=== PATIENT | male | born 1930 | race Caucasian/White ===

== ENCOUNTER → 2016-11-02 | Outpatient (REF) | payer MEDICARE ==
[~2016-11-02] MED LIST: ACET-654 PO; ALLO100T PO; AMLO5TAB2 PO; ASPI325T PO; ATEN25TA PO; ATEN50TA2 PO; B-12100010 PO; CALC1CAP31 PO; CEFD1CAP8 PO; DOXY-278 PO; FERR325T PO; FLEEENE4 PR; FURO20TA2 PO; FURO40TA2 PO; LISI-538 PO; LISI25TA PO; MILKSUS PO; MIRA33504 PO; MUCI600T34 PO; NIFEPOW PO; PERCOCET PO; PROT1TAB2 PO; SENO8.6T10 PO; SIMV20TA2 PO; SPIR25TA2 PO; TYLE325T5 PO; ZOLO50TA PO
[2016-11-02 16:30] LABS: ALBUMIN 2.8 GM/DL (3.2-5.2); ALBUMIN/GLOBULIN RATIO 0.85 (1.00-1.93); BILIRUBIN,TOTAL 0.4 MG/DL (0.2-1.0); CALCIUM LEVEL 8.1 MG/DL (8.8-10.2); CREATININE FOR GFR 2.2 MG/DL (0.70-1.30); GLOMERULAR FILTRATION RATE 30.2 (>35); PERCENT SATURATION 8.6 % (19.7-37.4); POTASSIUM SERUM 3.5 MEQ/L (3.5-5.1); TOTAL PROTEIN 6.1 GM/DL (6.4-8.2)
[2016-11-02 16:40] LABS: BASO % 0.4 % (0.0-1.0); EOS # 0.1 K/mm3 (0.0-0.50); EOS % 1.3 % (0.0-3.0); LARGE UNSTAINED CELL # 0.2 K/mm3 (0.0-0.4); LARGE UNSTAINED CELL % 2.8 % (0.0-4.0); LYMPH # 0.9 K/mm3 (1.5-4.5); MEAN CORPUSCULAR HEMOGLOBIN 29.6 pg (27.0-33.0); MEAN CORPUSCULAR HGB CONC 31.2 g/dl (32.0-36.5); MEAN CORPUSCULAR VOLUME 94.9 fl (80.0-96.0); MONO # 0.7 K/mm3 (0.0-0.8); MONO % 8.1 % (0.0-5.0); NEUTROPHILS # 6.1 K/mm3 (1.8-7.7); NEUTROPHILS % 76.5 % (36.0-66.0); PLATELET COUNT, AUTOMATED 256 k/mm3 (150-450); RED CELL DISTRIBUTION WIDTH 14.4 % (11.5-14.5)
[2016-11-04 10:57] LABS: PRETREATED FOLATE FOR RBCFOL > 24.0 NG/ML
== END ==
LOC: M SFHCPLAZ 12:25
PROVIDERS: ATTEND Family Medicine
DX: N18.3 Chronic kidney disease, stage 3 (moderate) (principal); E53.8 Deficiency of other specified B group vitamins; I12.9 Hypertensive chronic kidney disease with stage 1 through stage 4 chronic kidney disease, or unspecified chronic kidney disease; E78.5 Hyperlipidemia, unspecified; D50.9 Iron deficiency anemia, unspecified; I50.30 Unspecified diastolic (congestive) heart failure; M10.9 Gout, unspecified; E55.9 Vitamin D deficiency, unspecified; I25.10 Atherosclerotic heart disease of native coronary artery without angina pectoris; M16.9 Osteoarthritis of hip, unspecified; Z79.82 Long term (current) use of aspirin; Z79.1 Long term (current) use of non-steroidal anti-inflammatories (NSAID)

== ENCOUNTER → 2016-11-11 | Outpatient (CLI) | payer MEDICARE ==
--- NOTE | 2016-11-11 16:50 | REP ---
CT chest without contrast 11/11/2016: Indication: Pleural effusion. Comparison: CT chest without contrast 10/14/2016 CT chest 04/10/2009. Technique: 3 mm spiral axial sections performed through chest without contrast. Findings: The thoracic aorta is ectatic in its ascending portion, measuring 3.9 cm AP x 3.8 cm transverse dimension. Extensive coronary artery calcification is noted. There has been prior median sternotomy. Calcification is noted in the region of the aortic valve. There are multiple small nonspecific mediastinal nodes, none of which are pathologically enlarged, and not significantly changed. Previous moderate right pleural effusion is improved and now small to moderate in size. There is some compressive atelectasis within the right lower lobe. Long stable area of dense consolidation within the left lower lobe is chronic and not significantly changed from 2008 study. This most compatible with a sequela of old empyema or hemothorax, and not significantly changed. There is compressive atelectasis of the left lower lobe. Visualized portions of the liver, spleen, pancreas, gallbladder normal. There is thickening in the right adrenal with low density consistent with adenoma. The left adrenal is also thickened and with density greater than adenoma, therefore indeterminate. Impression:1. Prior median sternotomy with extensive coronary artery calcification. 2. Scattered sub cm mediastinal nodes, nonspecific and not significantly changed. 3. Stable pleural based mass within the posterior aspect left lower lobe most compatible with sequela of hemothorax. Findings are not significantly changed since prior study 04/10/2009. 4. Small to moderate right posterior layering pleural effusion, decreased from prior study. There is right basilar compression atelectasis. Signed by Beba Kennedy MD 11/11/2016 08:33 P
== END | disposition home or self-care (01) ==
LOC: M RAD 15:25
PROVIDERS: ATTEND Physician Assistant Medical
DX: J90 Pleural effusion, not elsewhere classified (principal); J98.11 Atelectasis

== ENCOUNTER 2017-01-03 18:30 | Inpatient (IN) | payer MEDICARE ==
[~2017-01-03] VITALS: Ht 172.7 cm; Wt 65.4 kg
[~2017-01-03 18:30] MED LIST changes: -IRON65TA PO; -ROCA0.5C PO; -TORS20TA2 PO; -TRAM50TA2 PO; -TUMS500C PO; -VITA100072 PO; -WARF05TA PO; -WARF4TAB51 PO; -calcitrol
[2017-01-03] MEDS ORDERED: TRAM50TA2 PO (19:07)
[2017-01-03] MEDS ORDERED: calcitrol (19:07)
[2017-01-03] MEDS ORDERED: WARF05TA PO (19:07)
[2017-01-03] MEDS ORDERED: IRON65TA PO (19:07)
[2017-01-03] MEDS ORDERED: ATEN25TA PO (19:07)
[2017-01-03] MEDS ORDERED: TORS20TA2 PO (19:07)
[2017-01-03] MEDS ORDERED: VITA100072 PO (19:07)
[2017-01-03] MEDS ORDERED: TUMS500C PO (19:07)
[2017-01-03 21:19] LABS: BASO % 0.1 % (0.0-1.0); EOS # 0.1 K/mm3 (0.0-0.50); EOS % 0.6 % (0.0-3.0); LARGE UNSTAINED CELL # 0.2 K/mm3 (0.0-0.4); LARGE UNSTAINED CELL % 1.4 % (0.0-4.0); LYMPH # 1.2 K/mm3 (1.5-4.5); LYMPH % 7.1 % (24.0-44.0); MEAN CORPUSCULAR HEMOGLOBIN 27.2 pg (27.0-33.0); MEAN CORPUSCULAR HGB CONC 30.8 g/dl (32.0-36.5); MEAN CORPUSCULAR VOLUME 88.4 fl (80.0-96.0); MONO % 7.1 % (0.0-5.0); NEUTROPHILS # 11.8 K/mm3 (1.8-7.7); NEUTROPHILS % 83.7 % (36.0-66.0); PLATELET COUNT, AUTOMATED 291 k/mm3 (150-450); RED CELL DISTRIBUTION WIDTH 15.7 % (11.5-14.5); WHITE BLOOD COUNT 14.1 K/mm3 (4.0-10.0)
[2017-01-03 21:36] LABS: CALCIUM LEVEL 8.4 MG/DL (8.8-10.2); CREATININE FOR GFR 2.41 MG/DL (0.70-1.30); GLOMERULAR FILTRATION RATE 27.2 (>35); POTASSIUM SERUM 4.2 MEQ/L (3.5-5.1)
[2017-01-03 21:39] LABS: INR 6.05
[2017-01-03] MEDS ORDERED: ROCA0.5C PO (22:26)
[2017-01-03] MEDS ORDERED: WARF4TAB51 PO (22:32)
[2017-01-03] MEDS ORDERED: PHYTONADIONE 5 MG TAB PO ONE (22:45)
[2017-01-03] MEDS ORDERED: ONDANSETRON 4MG/2ML VIAL (J2405) IV PRN (22:45)
[2017-01-03] MEDS ORDERED: ACETAMINOPHEN TAB 650MG DOSE (2X325MG) PO PRN (22:45)
--- NOTE | 2017-01-04 00:08 | HPE ---
DATE OF ADMISSION: 01/03/2017 PRIMARY CARE PHYSICIAN: Dr. Alonso Hernandez CHIEF COMPLAINT: Sent to the emergency room (ER) for abnormal labs. HISTORY OF THE PRESENT ILLNESS: The patient is an 86-year-old man who reported lightheadedness when standing and some dizziness, progressively worsening for the last 2 weeks, as well as some weakness and not feeling very good. He denies any change in his stool. No shortness of breath or fatigue. He denies chest pain, nausea, vomiting, fevers, chills. The patient was seen by his primary care provider this morning. He did have laboratory and blood work drawn and was referred to the emergency room. The emergency room were not notified as to what labs were abnormal. However, the patient's family stated concerns about his INR. INR was checked here and was found to be elevated at 6.0 and the patient was found to be anemic and the hospitalist service was called for admission. PAST MEDICAL HISTORY: SVT status post ablation. Paroxysmal atrial fibrillation, anticoagulated on Coumadin. Hypertension. Dyslipidemia. Mild dementia. Chronic kidney disease. Gout. Coronary artery disease, status post coronary artery bypass graft (CABG) times three. Refused repeat stress testing. Diastolic congestive heart failure. Secondary hyperparathyroidism. Osteoarthritis. Vitamin D deficiency. Gastroesophageal reflux disease (GERD). Iron deficiency anemia. HOME MEDICATIONS: - aspirin 325 mg daily - Coumadin, dose unknown, 1 to 2 mg - Tylenol 650 mg every 4 hours as needed for pain - allopurinol 100 mg daily - atenolol 12.5 mg daily - calcitriol 0.5 mcg daily - TUMS 1 gram by mouth twice a day - vitamin B12 1000 mcg daily - iron 325 mg by mouth daily - simvastatin 20 mg daily - Torsemide 20 mg by mouth twice a day - Tramadol 50 mg three times a day as needed for pain or fever ALLERGIES: The patient has no known drug allergies. FAMILY HISTORY: Noncontributory. REVIEW OF SYSTEMS: Negative other than in the history of the present illness (HPI). SOCIAL HISTORY: The patient lives alone. He is no longer working. He has a son in town, and he is accompanied in the emergency room by his brother and [id number]. He has refused hemodialysis and repeat stress testing to his primary care provider in the past. His family is concerned that he may not be able to care for himself at home any further. PAST SURGICAL HISTORY: Coronary artery bypass graft (CABG). PHYSICAL EXAMINATION: Blood pressure 151/73, pulse 75, respiratory rate 18, oxygen saturation 100% on room air. Temperature 95.9. GENERAL: He is a frail elderly man sitting up in his bed. He is somewhat hard of hearing. He is in no distress. HEENT: He has poor dentition. Senile arcus. Moist mucous membranes. He has mild conjunctival pallor. Cranial nerves II-XII are grossly intact. CARDIOVASCULAR EXAM: S1, S2, regular rate and rhythm. RESPIRATORY EXAM: Clear. ABDOMINAL EXAM: Benign. EXTREMITIES: No clubbing, cyanosis or edema. LABORATORY STUDIES: WBC 14.1, hemoglobin 8.7, hematocrit 28.1, platelet count 291. Chemistry panel: Sodium 142, potassium 4.2, chloride 105, bicarbonate 25, BUN 70, creatinine 2.4. INR was 6.0. No imaging. ASSESSMENT AND PLAN: This is an 86-year-old man with symptomatic anemia. PROBLEMS: 1. Symptomatic anemia. Likely secondary to supratherapeutic international normalized ratio (INR), likely some gastrointestinal (GI) losses. I will start the patient on intravenous (IV) Protonix. Will continue with TUMS. He will continue his iron and B12 supplements. He is likely experiencing acute on chronic anemia. His chronic anemia is multifactorial related to kidney disease, B12 deficiency, iron deficiency. His acute drop is likely related to supratherapeutic INR. He will receive one unit of packed red blood cells. We will hold his anticoag. I will give him a small dose of vitamin K by mouth and will check an occult stool for blood. He may benefit from colonoscopy in the future if he is agreeable to it. I have spoken with the ER who will give him one unit of packed red blood cells. Given his diastolic congestive heart failure, will 1 unit slowly , he may benefit from an additional unit tomorrow. Given that he also has had some lightheadedness when standing, physical therapy evaluation has been ordered. I will place a patient and family services (PFS) consult as his brother and [id number]-[id number] are concerned about him living alone. They feel he may require placement or at least services. 2. Diastolic congestive heart failure. Will continue with home blood pressure medications as well as his Lasix. We will monitor his renal function closely. He will be receiving blood later this evening, so we will continue with his diuretic. 3. Gout. Continue with allopurinol. 4. Coronary artery disease. We will hold his aspirin. Continue with his statin and beta ricci. 5. Paroxysmal atrial fibrillation. We will hold his Coumadin. 6. Dementia. Physical therapy and patient and family services consult placed. 7. Chronic kidney disease. Slightly higher than what appears to be his baseline. Will monitor as he is receiving blood. May be related to his acute anemia versus overdiuresis. Will monitor his status closely with daily weights and intake and output. 8. Secondary hyperparathyroidism. Continue with calcitriol. 9. B12 deficiency. Continue with supplementation. 10. Osteoarthritis. Continue with tramadol. Followup with his outpatient provider. 11. Dyslipidemia. Continue statin. 12. Vitamin D deficiency. Continue with supplementation. 13. Deep vein thrombosis (DVT) prophylaxis. Sequentials and thromboembolism deterrents (TEDs). No pharmacological agents secondary to acute blood loss anemia. DISPOSITION: The patient is admitted to the medical-surgical floor to Dr. Burkett's service of [facility], who will continue following the patient at 7:00 a.m. LELIA
[2017-01-04 00:30] VITALS: BP 152/54
[2017-01-04 06:00] VITALS: BP 137/63
[2017-01-04 06:15] LABS: MEAN CORPUSCULAR HEMOGLOBIN 27.9 pg (27.0-33.0); MEAN CORPUSCULAR VOLUME 87.2 fl (80.0-96.0); RED CELL DISTRIBUTION WIDTH 16.2 % (11.5-14.5)
[2017-01-04 06:28] LABS: CALCIUM LEVEL 8.7 MG/DL (8.8-10.2); CREATININE FOR GFR 2.29 MG/DL (0.70-1.30); GLOMERULAR FILTRATION RATE 28.9 (>35); POTASSIUM SERUM 3.8 MEQ/L (3.5-5.1)
[2017-01-04] MEDS: ATENOLOL 25 MG TAB PO SCH (07:13)
--- NOTE | 2017-01-04 07:24 | IPNPDOC ---
Subjective Date Seen The patient was seen on 01/04/17. Subjective Chief Complaint/HPI The patient is a 86-year-old male admitted with a reason for visit of Symptomatic Anemia. Constitutional: Reports: Weakness, Denies: Chills, Fever, Night Sweats ENT: Denies: Dysphagia, Ear Pain, Head Aches Skin: Denies: Breakdown, Lesions, Rash Pulmonary: Denies: Cough, Dyspnea Gastrointestinal: Denies: Abdominal Pain, Constipation, Diarrhea, Nausea, Vomiting Genitourinary: Denies: Dysuria, Frequency, Incontinence, Retention Neurological: Reports: Weakness Psych: Reports: Mood Normal, Denies: Depression, Memory Issues Objective Physical Examination General Exam: Positive: Alert, No Acute Distress Eye Exam: Positive: Conjunctiva & lids normal, EOMI, PERRLA, Negative: Sclera icteric Neck Exam: Positive: Supple, Negative: JVD, thyromegaly Chest Exam: Positive: Clear to auscultation, Normal air movement Heart Exam: Positive: Normal S1, Normal S2, Rate Normal, Regular Rhythm, Negative: Rubs Abdomen Exam: Positive: Normal bowel sounds, Soft, Negative: Hepatospenomegaly, Tenderness Extremity Exam: Positive: Normal pulses, Negative: Clubbing, Cyanosis, Edema Skin Exam: Positive: Nl turgor and temperature, Negative: Breakdown, Rash Neuro Exam: Positive: Cranial Nerves 3-12 NL, Normal Gait, Normal Speech, Reflexes 2+ Psych Exam: Positive: Mental status NL, Mood NL, Oriented x 3 Assessment /Plan Problems (1) Symptomatic anemia Status: Acute Problem Text: recived 1 Unit RBC overnight. H/H remain minimally changed. May be related to supratherapeutic INR. (2) Supratherapeutic INR Status: Acute Problem Text: INR 6.0 on admission. Repeat ordered for this am. Warfarin on HOLD (3) CHF (congestive heart failure) Status: Chronic Problem Specific Plan: Monitor Clinically Problem Text: pears well compensated. (4) CAD (coronary artery disease) Status: Chronic Problem Specific Plan: Monitor Clinically (5) Hyperlipidemia Status: Chronic Problem Specific Plan: Monitor Clinically (6) Depression with anxiety Status: Chronic Problem Specific Plan: Monitor Clinically (7) CKD (chronic kidney disease) Status: Chronic Problem Specific Plan: Monitor Clinically Problem Text: baseline 1.8-2.2. Cr. 2.29 today. (8) Afib Status: Chronic Problem Text: Paroxysmal atrial fib. Bradycardia noted. ranging 40-50 for HR. Parameters set for Atenolol. (9) HTN (hypertension) Status: Chronic Response to Treatment: Stable Problem Specific Plan: Monitor Clinically (10) Anemia Status: Chronic Problem Text: hx of iron and B12 deficiency. recent episode may be due to supratherapeutic INR. Plan/VTE VTE Prophylaxis Ordered?: No Plan Family Medicine Attending Note: I saw and examined Mr. Dickinson today; I d/ w Mari Tam NP and I agree with her note. INR remains elevated despite multiple doses of PO vitamin K today; I am concerned that he is not absorbing this and we have ordered a dose of SC vitamin K. H/H was stable after receiving 1 U pRBCs yesterday; recheck H/H ordered for this evening. He has no complaints at present and exam is relatively benign except for a harsh 4/6 holosystolic murmur best heard at the LUSB. (KES) VS, I&O, 24H, [facility] Vital Signs/I&O Vital Signs Date Time Temp Pulse Resp B/P Pulse Ox O2 Delivery O2 Flow Rate FiO2 01/04/17 06:00 97.3 51 17 137/63 98 Room Air I&O- Last 24 Hours up to 6 AM 01/04/17 06:00 Intake Total 0 ml Output Total 300 ml Balance -300 ml Laboratory Data 24H LABS Laboratory Tests 2 01/03/17 21:02: Anion Gap 12, Blood Urea Nitrogen 70H, Creatinine 2.41H, Sodium Level 142, Potassium Level 4.2, Chloride Level 105, Carbon Dioxide Level 25, Calcium Level 8.4L, Glomerular Filtration Rate 27.2L, Urine Amorphous Sediment , Urine Appearance CLEAR, Urine Color YELLOW, Urine pH 5.0, Urine Specific Rule 1.010 , Urine Protein NEGATIVE, Urine Glucose (UA) NEGATIVE, Urine Ketones TRACEH, Urine Urobilinogen 0.2, Urine Bilirubin NEGATIVE, Urine Leukocyte Esterase NEGATIVE, Urine Bacteria (Auto) NEGATIVE, Urine Blood NEGATIVE, Urine Calcium Carbonate Cryst(Auto) , Urine Calcium Oxalate Cryst (Auto) , Urine Calcium Phosphate Bronwyn (Auto) , Urine Cellular Casts , Urine Cystine Crystals , Urine Granular Casts (Auto) , Urine Hyaline Casts (Auto) 0, Urine Leucine Crystals , Urine Mucus (Auto) SMALL, Urine Nitrite NEGATIVE, Urine Oval Fat Bodies (Auto) , Urine RBC (Auto) 1, Urine Renal Epithelial Cells , Urine Sperm (Auto) , Urine Squamous Epithelial Cells 0, Urine Transitional Epithelial Cells , Urine Trichomonas (Auto) , Urine Triple Phosphate Cryst (Auto) , Urine Tyrosine Crystals , Urine Uric Acid Crystals (Auto) , Urine WBC (Auto) 1, Urine Waxy Casts (Auto) , Urine Yeast-Like Cells (Auto) 01/03/17 21:03: Activated Partial Thromboplast Time 103.5H, White Blood Count 14.1H, Red Blood Count 3.18L, Hemoglobin 8.7L, Hematocrit 28.1L, Mean Corpuscular Volume 88.4, Mean Corpuscular Hemoglobin 27.2, Mean Corpuscular Hemoglobin Concent 30.8L, Red Cell Distribution Width 15.7H, Platelet Count 291, Neutrophils (%) (Auto) 83.7H, Lymphocytes (%) (Auto) 7.1L, Monocytes (%) (Auto) 7.1H, Eosinophils (%) ( Auto) 0.6, Basophils (%) (Auto) 0.1, Neutrophils # (Auto) 11.8H, Lymphocytes # ( Auto) 1.2L, Monocytes # (Auto) 1.0H, Eosinophils # (Auto) 0.1, Basophils # (Auto ) 0.0, Large Unclassified Cells # 0.2, Large Unclassified Cells % 1.4, Prothromb Time International Ratio 6.05*H, Prothrombin Time 53.7H 01/04/17 05:40: Anion Gap 11, Blood Urea Nitrogen 68H, Creatinine 2.29H, Sodium Level 144, Potassium Level 3.8, Chloride Level 107, Carbon Dioxide Level 26, Calcium Level 8.7L, Glomerular Filtration Rate 28.9L CBC/BMP Laboratory Tests 01/03/17 21:02 Calcium Level 8.4 L 01/03/17 21:03 Red Blood Count 3.18 L, Mean Corpuscular Volume 88.4, Mean Corpuscular Hemoglobin 27.2, Mean Corpuscular Hemoglobin Concent 30.8 L, Red Cell Distribution Width 15.7 H, Neutrophils (%) (Auto) 83.7 H, Lymphocytes (%) (Auto ) 7.1 L, Monocytes (%) (Auto) 7.1 H, Eosinophils (%) (Auto) 0.6, Basophils (%) ( Auto) 0.1, Neutrophils # (Auto) 11.8 H, Lymphocytes # (Auto) 1.2 L, Monocytes # (Auto) 1.0 H, Eosinophils # (Auto) 0.1, Basophils # (Auto) 0.0 01/04/17 05:40 Calcium Level 8.7 L, Red Blood Count 3.20 L, Mean Corpuscular Volume 87.2, Mean Corpuscular Hemoglobin 27.9, Mean Corpuscular Hemoglobin Concent 32.0, Red Cell Distribution Width 16.2 H Microbiology Microbiology 01/03/17 Urine Culture, Received Pending Mari Tam Jan 04, 2017 07:24 CIARA PUENTES MD Jan 04, 2017 16:25
[2017-01-04 08:04] LABS: INR 6.7
[2017-01-04] MEDS: SIMVASTATIN 20 MG TAB PO SCH (08:25)
[2017-01-04] MEDS: CYANOCOBALAMIN 500 MCG TAB PO SCH (08:25)
[2017-01-04] MEDS: FERROUS SULFATE 325MG TAB PO SCH (08:26)
[2017-01-04] MEDS: PANTOPRAZOLE 40MG INJ (PROTONIX) (C9113) IV SCH (08:26)
[2017-01-04] MEDS: TORSEMIDE 20 MG TAB PO SCH ×2 (08:26→16:53)
[2017-01-04] MEDS: ALLOPURINOL 100 MG TAB PO SCH (08:26)
[2017-01-04] MEDS: CALCITRIOL 0.25 MCG CAP (S0169) PO SCH (08:26)
[2017-01-04] MEDS: CALCIUM CARBONATE 500 MG CHEW U/D PO SCH ×2 (08:26→20:12)
[2017-01-04] MEDS ORDERED: PHYTONADIONE 5 MG TAB PO ONE ×2 (08:30→11:00)
[2017-01-04 10:55] LABS: INR 6.64
[2017-01-04 14:00] VITALS: BP 154/72
[2017-01-04 14:05] LABS: INR 6.61
[2017-01-04] MEDS ORDERED: PHYTONADIONE 1 MG/0.5 ML SYRINGE (J3430) SQ ONE (15:15)
[2017-01-04 19:14] LABS: INR 3.05
[2017-01-04 19:26] LABS: EOS # 0.1 K/mm3 (0.0-0.50); EOS % 0.7 % (0.0-3.0); LARGE UNSTAINED CELL # 0.4 K/mm3 (0.0-0.4); LARGE UNSTAINED CELL % 2.4 % (0.0-4.0); LYMPH # 1.1 K/mm3 (1.5-4.5); LYMPH % 7.1 % (24.0-44.0); MEAN CORPUSCULAR HEMOGLOBIN 27.1 pg (27.0-33.0); MEAN CORPUSCULAR HGB CONC 31.3 g/dl (32.0-36.5); MEAN CORPUSCULAR VOLUME 86.5 fl (80.0-96.0); MONO % 6.4 % (0.0-5.0); NEUTROPHILS # 13.1 K/mm3 (1.8-7.7); NEUTROPHILS % 83.3 % (36.0-66.0); PLATELET COUNT, AUTOMATED 236 k/mm3 (150-450); RED CELL DISTRIBUTION WIDTH 16.2 % (11.5-14.5); WHITE BLOOD COUNT 15.7 K/mm3 (4.0-10.0)
[2017-01-04 22:00] VITALS: BP 144/69
[2017-01-05 06:00] VITALS: BP 138/82
[2017-01-05 06:19] LABS: MEAN CORPUSCULAR HEMOGLOBIN 27.1 pg (27.0-33.0); MEAN CORPUSCULAR HGB CONC 30.8 g/dl (32.0-36.5); WHITE BLOOD COUNT 13.3 K/mm3 (4.0-10.0)
[2017-01-05 06:43] LABS: CALCIUM LEVEL 8.4 MG/DL (8.8-10.2); CREATININE FOR GFR 2.4 MG/DL (0.70-1.30); GLOMERULAR FILTRATION RATE 27.3 (>35); POTASSIUM SERUM 3.5 MEQ/L (3.5-5.1)
[2017-01-05 07:16] LABS: INR 1.77
[2017-01-05] MEDS: ATENOLOL 25 MG TAB PO SCH (09:00)
[2017-01-05] MEDS: CALCITRIOL 0.25 MCG CAP (S0169) PO SCH (10:17)
[2017-01-05] MEDS: TORSEMIDE 20 MG TAB PO SCH ×2 (10:17→16:19)
[2017-01-05] MEDS: CALCIUM CARBONATE 500 MG CHEW U/D PO SCH ×2 (10:17→21:14)
[2017-01-05] MEDS: PANTOPRAZOLE 40MG INJ (PROTONIX) (C9113) IV SCH (10:17)
[2017-01-05] MEDS: SIMVASTATIN 20 MG TAB PO SCH (10:18)
[2017-01-05] MEDS: ALLOPURINOL 100 MG TAB PO SCH (10:18)
[2017-01-05] MEDS: FERROUS SULFATE 325MG TAB PO SCH (10:18)
[2017-01-05] MEDS: CYANOCOBALAMIN 500 MCG TAB PO SCH (10:18)
--- NOTE | 2017-01-05 11:25 | IPNPDOC ---
Subjective Date Seen The patient was seen on 01/05/17. Subjective Chief Complaint/HPI Pt feeling well, no new concerns. Son at bedside. Pt has been up ambulating, feels steady on his feet. Son notes and pt agrees, he has not been eating well at home. Not preparing his own meals. family plans for MOW. Also hoping for PH to come and help with medication set up. General: Denies: Fatigue Constitutional: Denies: Chills, Fever Pulmonary: Denies: Cough, Dyspnea Cardiovascular: Denies: Chest Pain, Palpitations Gastrointestinal: Denies: Diarrhea, Nausea, Vomiting Neurological: Denies: Weakness Psych: Reports: Mood Normal Objective Physical Examination General Exam: Positive: Alert, No Acute Distress Eye Exam: Negative: Sclera icteric Neck Exam: Positive: Supple, Negative: JVD, thyromegaly Chest Exam: Positive: Clear to auscultation, Normal air movement Heart Exam: Positive: Murmurs, Normal S1, Normal S2, Rate Normal, Regular Rhythm, Negative: Rubs Abdomen Exam: Positive: Normal bowel sounds, Soft, Negative: Hepatospenomegaly, Tenderness Extremity Exam: Positive: Normal pulses, Negative: Clubbing, Cyanosis, Edema Skin Exam: Positive: Nl turgor and temperature, Negative: Breakdown, Rash Neuro Exam: Positive: Normal Speech Psych Exam: Positive: Mental status NL, Mood NL, Oriented x 3 Assessment /Plan Problems (1) Symptomatic anemia Status: Acute Problem Text: 01/05 - Hgb down slightly, monitor, if remains stable anticipate home tomorrow. 01/04 recived 1 Unit RBC overnight. H/H remain minimally changed. May be related to supratherapeutic INR. (2) Supratherapeutic INR Status: Resolved Problem Text: INR 6.0 on admission. Repeat ordered for this am. Warfarin on HOLD (3) Afib Status: Chronic Problem Text: 01/05 Attending Note: coumadin held due to hemoccult + 01/05 - Will resume Coumadin today 1 mg daily, except 1/2 mg on Thursday 01/04 Paroxysmal atrial fib. Bradycardia noted. ranging 40-50 for HR. Parameters set for Atenolol. (4) CHF (congestive heart failure) Status: Chronic Problem Specific Plan: Monitor Clinically Problem Text: Appears well compensated. (5) CAD (coronary artery disease) Status: Chronic Problem Specific Plan: Monitor Clinically (6) Hyperlipidemia Status: Chronic Problem Specific Plan: Monitor Clinically (7) Depression with anxiety Status: Chronic Problem Specific Plan: Monitor Clinically (8) CKD (chronic kidney disease) Status: Chronic Problem Specific Plan: Monitor Clinically Problem Text: baseline 1.8-2.2. Cr. 2.29 today. (9) HTN (hypertension) Status: Chronic Response to Treatment: Stable Problem Specific Plan: Monitor Clinically (10) Anemia Status: Chronic Problem Text: hx of iron and B12 deficiency. recent episode may be due to supratherapeutic INR. Plan/VTE VTE Prophylaxis Ordered?: No Plan Family Medicine Attending Note: Patient seen and examined; I d/w JOHAN Llamas and I agree with her note above with noted additions. Patient had heme+ stool this afternoon. I d/w patient whether he would want a workup for this with colonoscopy and possibly EGD - he emphatically states he does not want these done. I explained that if we do not work this up, I would recommend that he not restart warfarin. I explained that this would increase his risk of CVA. He verbalized understanding of this, but wants us to also discuss with his son - we will discuss with him tomorrow. (KES) VS, I&O, 24H, Fishbone Vital Signs/I&O Vital Signs Date Time Temp Pulse Resp B/P Pulse Ox O2 Delivery O2 Flow Rate FiO2 01/05/17 09:00 51 138/82 01/05/17 06:00 96.7 17 97 Room Air I&O- Last 24 Hours up to 6 AM 01/05/17 05:59 Intake Total 720 ml Output Total 1000 ml Balance -280 ml Laboratory Data 24H LABS Laboratory Tests 2 01/04/17 13:02: Prothromb Time International Ratio 6.61*H, Prothrombin Time 57.5H 01/04/17 18:53: Prothromb Time International Ratio 3.05, Prothrombin Time 31.6H, White Blood Count 15.7H, Red Blood Count 3.50L, Hemoglobin 9.5L, Hematocrit 30.2L, Mean Corpuscular Volume 86.5, Mean Corpuscular Hemoglobin 27.1, Mean Corpuscular Hemoglobin Concent 31.3L, Red Cell Distribution Width 16.2H, Platelet Count 236 , Neutrophils (%) (Auto) 83.3H, Lymphocytes (%) (Auto) 7.1L, Monocytes (%) (Auto ) 6.4H, Eosinophils (%) (Auto) 0.7, Basophils (%) (Auto) 0.0, Neutrophils # ( Auto) 13.1H, Lymphocytes # (Auto) 1.1L, Monocytes # (Auto) 1.0H, Eosinophils # ( Auto) 0.1, Basophils # (Auto) 0.0, Large Unclassified Cells # 0.4, Large Unclassified Cells % 2.4 01/05/17 06:15: Anion Gap 14, Blood Urea Nitrogen 62H, Creatinine 2.40H, Sodium Level 146H, Potassium Level 3.5, Chloride Level 109H, Carbon Dioxide Level 23, Calcium Level 8.4L, Glomerular Filtration Rate 27.3L 01/05/17 06:51: Prothromb Time International Ratio 1.77, Prothrombin Time 20.7H CBC/BMP Laboratory Tests 01/04/17 18:53 Red Blood Count 3.50 L, Mean Corpuscular Volume 86.5, Mean Corpuscular Hemoglobin 27.1, Mean Corpuscular Hemoglobin Concent 31.3 L, Red Cell Distribution Width 16.2 H, Neutrophils (%) (Auto) 83.3 H, Lymphocytes (%) (Auto ) 7.1 L, Monocytes (%) (Auto) 6.4 H, Eosinophils (%) (Auto) 0.7, Basophils (%) ( Auto) 0.0, Neutrophils # (Auto) 13.1 H, Lymphocytes # (Auto) 1.1 L, Monocytes # (Auto) 1.0 H, Eosinophils # (Auto) 0.1, Basophils # (Auto) 0.0 01/05/17 06:15 Red Blood Count 3.34 L, Mean Corpuscular Volume 88.0, Mean Corpuscular Hemoglobin 27.1, Mean Corpuscular Hemoglobin Concent 30.8 L, Red Cell Distribution Width 16.0 H, Calcium Level 8.4 L Microbiology Microbiology 01/03/17 Urine Culture - Final, Complete NATE BURTON PA-C Jan 05, 2017 11:25 CIARA PUENTES MD Jan 05, 2017 17:06
[2017-01-05 14:00] VITALS: BP 162/77
[2017-01-05 16:43] LABS: RETIC HEMOGLOBIN CONTENT CHr 28.5 PG (24-36); RETICULOCYTE % ADVIA2120 2.5 % (0.5-1.5)
[2017-01-05 17:58] LABS: PERCENT SATURATION 6.7 % (19.7-37.4)
[2017-01-05 20:30] VITALS: BP 132/52
[2017-01-06 05:45] VITALS: BP 138/50
[2017-01-06 06:24] LABS: MEAN CORPUSCULAR HEMOGLOBIN 27.6 pg (27.0-33.0); MEAN CORPUSCULAR HGB CONC 31.6 g/dl (32.0-36.5); MEAN CORPUSCULAR VOLUME 87.4 fl (80.0-96.0)
[2017-01-06 06:44] LABS: CALCIUM LEVEL 8.4 MG/DL (8.8-10.2); CREATININE FOR GFR 2.43 MG/DL (0.70-1.30); GLOMERULAR FILTRATION RATE 26.9 (>35); POTASSIUM SERUM 3.2 MEQ/L (3.5-5.1)
[2017-01-06] MEDS: ALLOPURINOL 100 MG TAB PO SCH (08:57)
[2017-01-06] MEDS: CALCITRIOL 0.25 MCG CAP (S0169) PO SCH (08:57)
[2017-01-06] MEDS: PANTOPRAZOLE 40MG INJ (PROTONIX) (C9113) IV SCH (08:57)
[2017-01-06] MEDS: SIMVASTATIN 20 MG TAB PO SCH (08:57)
[2017-01-06] MEDS: CYANOCOBALAMIN 500 MCG TAB PO SCH (08:57)
[2017-01-06] MEDS: TORSEMIDE 20 MG TAB PO SCH ×2 (08:58→17:00)
[2017-01-06] MEDS: CALCIUM CARBONATE 500 MG CHEW U/D PO SCH ×2 (08:58→19:59)
[2017-01-06] MEDS: traMADol 50 MG TAB PO PRN ×2 (08:58→14:31)
[2017-01-06] MEDS: FERROUS SULFATE 325MG TAB PO SCH (08:58)
[2017-01-06] MEDS: ATENOLOL 25 MG TAB PO SCH (08:58)
[2017-01-06] MEDS ORDERED: POTASSIUM CHLORIDE 10 MEQ SR TABLET PO ONE (09:15)
--- NOTE | 2017-01-06 13:34 | IPNPDOC ---
Subjective Date Seen The patient was seen on 01/06/17. Subjective Chief Complaint/HPI Pt is in his bed this morning. He is upset with his nurse bc he believes his nurse contaminated his stools with blood, results in the heme + stool. He wants to go home. His brother and sister in law are at bedside and have concerns about him returning home. He isnt tending to his home well anymore. He hasnt been eating well or preparing his own meals. I spoke with his son and Dgt in law who share these concerns. They advise me that the pt has had ongoing issues, when help has been hired in the past he has fired them, aides, master automotive glass technician, lawn keepers. He has refused any AL arrangements that have been suggested in the past as well. Family is concerned that he no longer has the ability to manage his own medications. General: Reports: ROS Unobtainable Objective Physical Examination General Exam: Positive: Alert, No Acute Distress Eye Exam: Negative: Sclera icteric Neck Exam: Positive: Supple, Negative: JVD, thyromegaly Chest Exam: Positive: Clear to auscultation, Normal air movement Heart Exam: Positive: Murmurs, Normal S1, Normal S2, Rate Normal, Regular Rhythm, Negative: Rubs Abdomen Exam: Positive: Normal bowel sounds, Soft, Negative: Hepatospenomegaly, Tenderness Extremity Exam: Positive: Normal pulses, Negative: Clubbing, Cyanosis, Edema Skin Exam: Positive: Nl turgor and temperature, Negative: Breakdown, Rash Neuro Exam: Positive: Normal Speech Psych Exam: Positive: Mental status NL, Other (pt is agitated, yells out and interrupts during the exam, he doesn't know who I am(He did yesterday)) Assessment /Plan Problems (1) Symptomatic anemia Status: Acute Problem Text: 01/06 - Hgb stable, although hemoccult +, the pt refuses endoscopy , his family supports this decision. 01/05 - Hgb down slightly, monitor, if remains stable anticipate home tomorrow. 01/04 recived 1 Unit RBC overnight. H/H remain minimally changed. May be related to supratherapeutic INR. (2) Afib Status: Chronic Problem Text: 01/06 - Hemoccult + yesterday, therefore Coumadin no resumed, and won't be, pt and family aware of risks assoc with A fib and no anticoagulation, assoc with bleeding, refuses endoscopy. 01/05 Attending Note: coumadin held due to hemoccult + 01/05 - Will resume Coumadin today 1 mg daily, except 1/2 mg on Thursday 01/04 Paroxysmal atrial fib. Bradycardia noted. ranging 40-50 for HR. Parameters set for Atenolol. (3) Dementia Status: Chronic Response to Treatment: Worse Problem Specific Plan: Monitor Clinically, Repeat Labs Problem Text: I think this is related to change of setting at this point, no other neurologic deficit/change. D/w pts family. Rec need for 24 h care at this point with d/c home. (4) Supratherapeutic INR Status: Resolved Problem Text: INR 6.0 on admission. Repeat ordered for this am. Warfarin on HOLD (5) CHF (congestive heart failure) Status: Chronic Problem Specific Plan: Monitor Clinically Problem Text: Appears well compensated. (6) CAD (coronary artery disease) Status: Chronic Problem Specific Plan: Monitor Clinically (7) Hyperlipidemia Status: Chronic Problem Specific Plan: Monitor Clinically (8) Depression with anxiety Status: Chronic Problem Specific Plan: Monitor Clinically (9) CKD (chronic kidney disease) Status: Chronic Problem Specific Plan: Monitor Clinically Problem Text: baseline 1.8-2.2. Cr. 2.29 today. (10) HTN (hypertension) Status: Chronic Response to Treatment: Stable Problem Specific Plan: Monitor Clinically (11) Anemia Status: Chronic Problem Text: hx of iron and B12 deficiency. recent episode may be due to supratherapeutic INR. Plan/VTE VTE Prophylaxis Ordered?: No Plan Family Medicine Attending Note: I saw Mr. Diego this morning; I d/w JOHAN Hernandez and I agree with her note as documented. Patient continues to decline workup of heme+ stools and his family agrees with this. I agree that the issue here will be safe discharge planning, which we will continue to work on. (KES) VS, I&O, 24H, Fishbone Vital Signs/I&O Vital Signs Date Time Temp Pulse Resp B/P Pulse Ox O2 Delivery O2 Flow Rate FiO2 01/06/17 09:30 18 Room Air 01/06/17 08:58 50 138/50 01/06/17 05:45 97.6 96 I&O- Last 24 Hours up to 6 AM 01/06/17 06:00 Intake Total 660 ml Output Total 1050 ml Balance -390 ml Laboratory Data 24H LABS Laboratory Tests 2 01/05/17 16:19: Absolute Reticulocyte Count 89H, Carcinoembryonic Antigen 2.0, Ferritin 173, Iron Level 14L, Percent Reticulocyte Count 2.50H, Reticulocyte Hgb Content (CHr ) 28.5, Total Iron Binding Capacity 210L, Transferrin % Saturation 6.7L 01/06/17 05:13: Anion Gap 12, Blood Urea Nitrogen 57H, Creatinine 2.43H, Sodium Level 145, Potassium Level 3.2L, Chloride Level 107, Carbon Dioxide Level 26, Calcium Level 8.4L, Glomerular Filtration Rate 26.9L CBC/BMP Laboratory Tests 01/06/17 05:13 Calcium Level 8.4 L, Red Blood Count 3.35 L, Mean Corpuscular Volume 87.4, Mean Corpuscular Hemoglobin 27.6, Mean Corpuscular Hemoglobin Concent 31.6 L, Red Cell Distribution Width 16.0 H Microbiology Microbiology 01/05/17 Stool Occult Blood (GRACE) - Final, Complete 01/03/17 Urine Culture - Final, Complete NATE BURTON PA-C Jan 06, 2017 13:34 CIARA PUENTES MD Jan 06, 2017 13:49
[2017-01-06 14:00] VITALS: BP 164/70
[2017-01-06 20:10] VITALS: BP 142/53
[2017-01-07 05:40] VITALS: BP 149/52
[2017-01-07 06:10] LABS: MEAN CORPUSCULAR VOLUME 87.1 fl (80.0-96.0); RED CELL DISTRIBUTION WIDTH 16.1 % (11.5-14.5); WHITE BLOOD COUNT 16.4 K/mm3 (4.0-10.0)
[2017-01-07 06:25] LABS: CALCIUM LEVEL 8.7 MG/DL (8.8-10.2); CREATININE FOR GFR 2.33 MG/DL (0.70-1.30); GLOMERULAR FILTRATION RATE 28.3 (>35); POTASSIUM SERUM 3.1 MEQ/L (3.5-5.1)
[2017-01-07] MEDS: CALCIUM CARBONATE 500 MG CHEW U/D PO SCH ×2 (09:54→20:09)
[2017-01-07] MEDS: CALCITRIOL 0.25 MCG CAP (S0169) PO SCH (09:55)
[2017-01-07] MEDS: TORSEMIDE 20 MG TAB PO SCH ×2 (09:55→17:05)
[2017-01-07] MEDS: CYANOCOBALAMIN 500 MCG TAB PO SCH (09:55)
[2017-01-07] MEDS: ALLOPURINOL 100 MG TAB PO SCH (09:55)
[2017-01-07] MEDS: SIMVASTATIN 20 MG TAB PO SCH (09:55)
[2017-01-07] MEDS: FERROUS SULFATE 325MG TAB PO SCH (09:56)
[2017-01-07] MEDS: PANTOPRAZOLE 40MG INJ (PROTONIX) (C9113) IV SCH (09:56)
--- NOTE | 2017-01-07 10:16 | IPNPDOC ---
Subjective Date Seen The patient was seen on 01/07/17. Subjective Chief Complaint/HPI Pt without new concerns this morning. He is a bit agitated with still being in the hospital. General: Denies: Fatigue Constitutional: Denies: Chills, Fever ENT: Denies: Head Aches Pulmonary: Denies: Cough, Dyspnea Cardiovascular: Denies: Chest Pain, Palpitations Gastrointestinal: Denies: Diarrhea, Nausea, Vomiting Genitourinary: Denies: Dysuria, Frequency Neurological: Reports: Weakness Psych: Reports: Memory Issues, Mood Normal Objective Physical Examination General Exam: Positive: Alert, No Acute Distress, Negative: Cooperative Eye Exam: Negative: Sclera icteric Neck Exam: Positive: Supple, Negative: JVD, thyromegaly Chest Exam: Positive: Clear to auscultation, Normal air movement Heart Exam: Positive: Murmurs, Normal S1, Normal S2, Rate Normal, Regular Rhythm, Negative: Rubs Abdomen Exam: Positive: Normal bowel sounds, Soft, Negative: Hepatospenomegaly, Tenderness Extremity Exam: Positive: Normal pulses, Negative: Clubbing, Cyanosis, Edema Skin Exam: Positive: Nl turgor and temperature, Negative: Breakdown, Rash Neuro Exam: Positive: Normal Speech Psych Exam: Positive: Mental status NL, Oriented x 3 (he becomes agitated when I was asking if he knew where he was, he does not remember seeing me yesterday) , Other (Pt) Assessment /Plan Problems (1) Leukocytosis Status: Acute Problem Text: WBC 14 yest, up to 16 today, source not clear, will obtain UA, U C & S today, as well as CXR. CXR shows no infiltrate and U/A doesn't show infection. (2) Symptomatic anemia Status: Acute Problem Text: 01/07 - stable Hgb. 01/06 - Hgb stable, although hemoccult +, the pt refuses endoscopy, his family supports this decision. 01/05 - Hgb down slightly, monitor, if remains stable anticipate home tomorrow. 01/04 recived 1 Unit RBC overnight. H/H remain minimally changed. May be related to supratherapeutic INR. (3) Afib Status: Chronic Problem Text: 01/06 - Hemoccult + yesterday, therefore Coumadin not resumed, and won't be, pt and family aware of risks assoc with A fib and no anticoagulation, assoc with bleeding, refuses endoscopy. 01/05 Attending Note: coumadin held due to hemoccult + 01/05 - Will resume Coumadin today 1 mg daily, except 1/2 mg on Thursday 01/04 Paroxysmal atrial fib. Bradycardia noted. ranging 40-50 for HR. Parameters set for Atenolol. (4) Dementia Status: Chronic Response to Treatment: Worse Problem Specific Plan: Monitor Clinically, Repeat Labs Problem Text: 01/07 - MS seems to be slightly better this morning, although I remain concerned with his ability to manage independently at home. Not Safe per PT at this time. 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 01/06 I think this is related to change of setting at this point, no other neurologic deficit/change. D/w pts family. Rec need for 24 h care at this point with d/c home. (5) Supratherapeutic INR Status: Resolved Problem Text: INR 6.0 on admission. Repeat ordered for this am. Warfarin on HOLD (6) CHF (congestive heart failure) Status: Chronic Problem Specific Plan: Monitor Clinically Problem Text: Appears well compensated. (7) CAD (coronary artery disease) Status: Chronic Problem Specific Plan: Monitor Clinically (8) Hyperlipidemia Status: Chronic Problem Specific Plan: Monitor Clinically (9) Depression with anxiety Status: Chronic Problem Specific Plan: Monitor Clinically (10) CKD (chronic kidney disease) Status: Chronic Problem Specific Plan: Monitor Clinically Problem Text: baseline 1.8-2.2. Cr. 2.29 today. (11) HTN (hypertension) Status: Chronic Response to Treatment: Stable Problem Specific Plan: Monitor Clinically (12) Anemia Status: Chronic Problem Text: hx of iron and B12 deficiency. recent episode may be due to supratherapeutic INR. Plan/VTE VTE Prophylaxis Ordered?: No VS, I&O, 24H, Fishbone Vital Signs/I&O Vital Signs Date Time Temp Pulse Resp B/P Pulse Ox O2 Delivery O2 Flow Rate FiO2 01/07/17 05:40 97.6 52 17 149/52 95 Room Air I&O- Last 24 Hours up to 6 AM 01/07/17 06:00 Intake Total 2100 ml Output Total 1350 ml Balance 750 ml Laboratory Data 24H LABS Laboratory Tests 2 01/07/17 05:55: Anion Gap 10, Blood Urea Nitrogen 52H, Creatinine 2.33H, Sodium Level 144, Potassium Level 3.1L, Chloride Level 106, Carbon Dioxide Level 28, Calcium Level 8.7L, Glomerular Filtration Rate 28.3L CBC/BMP Laboratory Tests 01/07/17 05:55 Calcium Level 8.7 L, Red Blood Count 3.40 L, Mean Corpuscular Volume 87.1, Mean Corpuscular Hemoglobin 27.0, Mean Corpuscular Hemoglobin Concent 31.0 L, Red Cell Distribution Width 16.1 H Microbiology Microbiology 01/05/17 Stool Occult Blood (GRACE) - Final, Complete 01/03/17 Urine Culture - Final, Complete Attending Note Attending Note agree with findings and plan as noted NATE BURTON PA-C Jan 07, 2017 10:16 Phillip Stuart MD Jan 07, 2017 14:59
[2017-01-07] MEDS: ATENOLOL 25 MG TAB PO SCH (10:28)
--- NOTE | 2017-01-07 11:13 | REP ---
REASON: Leukocytosis. COMPARISON: 10/14/2016 Bibasilar changes are stable from 10/14/2016. AP technique was utilized in obtaining the frontal view, which accentuates the interstitial markings on the cardiac silhouette size. There is cardiomegaly status quo. Note is again made of previous median sternotomy. No acute patchy parenchymal opacities or pleural effusions have developed since the last exam. There is thickening of the fissures status quo. IMPRESSION: No significant change from 10/14/2016. There is evidence of mild interstitial edema and chronic lung base changes with cardiomegaly all accentuated by technique. Signed by Hammad Arana DO 01/07/2017 11:31 A
[2017-01-07] MEDS ORDERED: POTASSIUM CHLORIDE 10 MEQ SR TABLET PO ONE (11:15)
[2017-01-07 14:00] VITALS: BP 171/73
[2017-01-07] MEDS: traMADol 50 MG TAB PO PRN (17:06)
[2017-01-07 17:30] VITALS: BP 120/50
[2017-01-07 20:15] VITALS: BP 159/75
[2017-01-08 06:05] VITALS: BP 140/72
[2017-01-08 06:20] LABS: MEAN CORPUSCULAR HEMOGLOBIN 27.7 pg (27.0-33.0); MEAN CORPUSCULAR HGB CONC 31.3 g/dl (32.0-36.5); MEAN CORPUSCULAR VOLUME 88.6 fl (80.0-96.0); RED CELL DISTRIBUTION WIDTH 16.2 % (11.5-14.5); WHITE BLOOD COUNT 13.6 K/mm3 (4.0-10.0)
[2017-01-08 06:41] LABS: CALCIUM LEVEL 8.9 MG/DL (8.8-10.2); CREATININE FOR GFR 2.35 MG/DL (0.70-1.30); POTASSIUM SERUM 3.5 MEQ/L (3.5-5.1)
[2017-01-08] MEDS: ALLOPURINOL 100 MG TAB PO SCH (10:00)
[2017-01-08] MEDS: POTASSIUM CHLORIDE 10 MEQ SR TABLET PO SCH (10:00)
[2017-01-08] MEDS: CALCIUM CARBONATE 500 MG CHEW U/D PO SCH ×2 (10:00→20:50)
[2017-01-08] MEDS: CYANOCOBALAMIN 500 MCG TAB PO SCH (10:00)
[2017-01-08] MEDS: SIMVASTATIN 20 MG TAB PO SCH (10:01)
[2017-01-08] MEDS: FERROUS SULFATE 325MG TAB PO SCH (10:01)
[2017-01-08] MEDS: PANTOPRAZOLE 40MG TAB (PROTONIX) PO SCH (10:01)
[2017-01-08] MEDS: TORSEMIDE 20 MG TAB PO SCH ×2 (10:01→16:03)
[2017-01-08] MEDS: CALCITRIOL 0.25 MCG CAP (S0169) PO SCH (10:01)
[2017-01-08] MEDS: ATENOLOL 25 MG TAB PO SCH (10:04)
--- NOTE | 2017-01-08 11:26 | IPNPDOC ---
Subjective Date Seen The patient was seen on 01/08/17. Subjective Chief Complaint/HPI Pt without new concerns. General: Reports: Fatigue Constitutional: Denies: Chills, Fever ENT: Denies: Head Aches Pulmonary: Denies: Cough, Dyspnea Cardiovascular: Denies: Chest Pain, Palpitations Gastrointestinal: Denies: Nausea, Vomiting Neurological: Reports: Weakness Psych: Reports: Memory Issues, Mood Normal Objective Physical Examination General Exam: Positive: Alert, No Acute Distress, Negative: Cooperative Eye Exam: Negative: Sclera icteric Neck Exam: Positive: Supple, Negative: JVD, thyromegaly Chest Exam: Positive: Clear to auscultation, Normal air movement Heart Exam: Positive: Murmurs, Normal S1, Normal S2, Rate Normal, Regular Rhythm, Negative: Rubs Abdomen Exam: Positive: Normal bowel sounds, Soft, Negative: Hepatospenomegaly, Tenderness Extremity Exam: Positive: Normal pulses, Negative: Clubbing, Cyanosis, Edema Skin Exam: Positive: Nl turgor and temperature, Negative: Breakdown, Rash Neuro Exam: Positive: Normal Speech Psych Exam: Negative: Memory Intact Assessment /Plan Problems (1) Leukocytosis Status: Acute Problem Text: 01/08- WBC 13.6, down from 16.5 yesterday. UA, U C & S Neg, Cxr benign. 01/07 WBC 14 yest, up to 16 today, source not clear, will obtain UA, U C & S today, as well as CXR. CXR shows no infiltrate and U/A doesn't show infection. (2) Symptomatic anemia Status: Acute Problem Text: 01/07 - stable Hgb. 01/06 - Hgb stable, although hemoccult +, the pt refuses endoscopy, his family supports this decision. 01/05 - Hgb down slightly, monitor, if remains stable anticipate home tomorrow. 01/04 recived 1 Unit RBC overnight. H/H remain minimally changed. May be related to supratherapeutic INR. (3) Afib Status: Chronic Problem Text: 01/06 - Hemoccult + yesterday, therefore Coumadin not resumed, and won't be, pt and family aware of risks assoc with A fib and no anticoagulation, assoc with bleeding, refuses endoscopy. 01/05 Attending Note: coumadin held due to hemoccult + 01/05 - Will resume Coumadin today 1 mg daily, except 1/2 mg on Thursday 01/04 Paroxysmal atrial fib. Bradycardia noted. ranging 40-50 for HR. Parameters set for Atenolol. (4) Dementia Status: Chronic Response to Treatment: Worse Problem Specific Plan: Monitor Clinically, Repeat Labs Problem Text: 01/08 - Will need PFS assistance in D/C in the morning, he remains unsafe per PT. Enc ambulation with nursing. 01/07 - MS seems to be slightly better this morning, although I remain concerned with his ability to manage independently at home. Not Safe per PT at this time. 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 01/06 I think this is related to change of setting at this point, no other neurologic deficit/change. D/w pts family. Rec need for 24 h care at this point with d/c home. (5) Supratherapeutic INR Status: Resolved Problem Text: INR 6.0 on admission. Repeat ordered for this am. Warfarin on HOLD (6) CHF (congestive heart failure) Status: Chronic Problem Specific Plan: Monitor Clinically Problem Text: Appears well compensated. (7) CAD (coronary artery disease) Status: Chronic Problem Specific Plan: Monitor Clinically (8) Hyperlipidemia Status: Chronic Problem Specific Plan: Monitor Clinically (9) Depression with anxiety Status: Chronic Problem Specific Plan: Monitor Clinically (10) CKD (chronic kidney disease) Status: Chronic Problem Specific Plan: Monitor Clinically Problem Text: baseline 1.8-2.2. Cr. 2.29 today. (11) HTN (hypertension) Status: Chronic Response to Treatment: Stable Problem Specific Plan: Monitor Clinically (12) Anemia Status: Chronic Problem Text: hx of iron and B12 deficiency. recent episode may be due to supratherapeutic INR. Plan/VTE VTE Prophylaxis Ordered?: No VS, I&O, 24H, Fishbone Vital Signs/I&O Vital Signs Date Time Temp Pulse Resp B/P Pulse Ox O2 Delivery O2 Flow Rate FiO2 01/08/17 10:04 53 01/08/17 06:05 96.7 16 140/72 94 Room Air I&O- Last 24 Hours up to 6 AM 01/08/17 06:00 Intake Total 600 ml Output Total 1025 ml Balance -425 ml Laboratory Data 24H LABS Laboratory Tests 2 01/07/17 11:51: Urine Amorphous Sediment SMALLH, Urine Appearance CLEAR, Urine Color YELLOW, Urine pH 5.0, Urine Specific [place] 1.009, Urine Protein 1+H, Urine Glucose (UA ) NEGATIVE, Urine Ketones NEGATIVE, Urine Urobilinogen 0.2, Urine Bilirubin NEGATIVE, Urine Leukocyte Esterase NEGATIVE, Urine Bacteria (Auto) NEGATIVE, Urine Blood NEGATIVE, Urine Hyaline Casts (Auto) 1, Urine Mucus (Auto) SMALL, Urine Nitrite NEGATIVE, Urine RBC (Auto) 1, Urine Sperm (Auto) , Urine Squamous Epithelial Cells 0, Urine WBC (Auto) 0 01/08/17 05:26: Anion Gap 9, Blood Urea Nitrogen 53H, Creatinine 2.35H, Sodium Level 144, Potassium Level 3.5, Chloride Level 105, Carbon Dioxide Level 30, Calcium Level 8.9, Glomerular Filtration Rate 28.0L CBC/BMP Laboratory Tests 01/08/17 05:26 Calcium Level 8.9, Red Blood Count 3.44 L, Mean Corpuscular Volume 88.6, Mean Corpuscular Hemoglobin 27.7, Mean Corpuscular Hemoglobin Concent 31.3 L, Red Cell Distribution Width 16.2 H Microbiology Microbiology 01/05/17 Stool Occult Blood (GRACE) - Final, Complete 01/07/17 Urine Culture - Final, Complete 01/03/17 Urine Culture - Final, Complete NATE BURTON PA-C Jan 08, 2017 11:26
[2017-01-08 14:00] VITALS: BP 160/60
[2017-01-08] MEDS: traMADol 50 MG TAB PO PRN (16:03)
[2017-01-08 22:00] VITALS: BP 164/71
[2017-01-09 06:00] VITALS: BP 142/62
[2017-01-09 06:04] LABS: CALCIUM LEVEL 8.8 MG/DL (8.8-10.2); CREATININE FOR GFR 2.33 MG/DL (0.70-1.30); GLOMERULAR FILTRATION RATE 28.3 (>35); POTASSIUM SERUM 3.7 MEQ/L (3.5-5.1)
[2017-01-09 06:30] LABS: MEAN CORPUSCULAR HEMOGLOBIN 27.4 pg (27.0-33.0); MEAN CORPUSCULAR HGB CONC 30.7 g/dl (32.0-36.5); MEAN CORPUSCULAR VOLUME 89.1 fl (80.0-96.0)
[2017-01-09 10:10] VITALS: BP 146/70
[2017-01-09 10:19] VITALS: BP 146/70
[2017-01-09] MEDS: CYANOCOBALAMIN 500 MCG TAB PO SCH (10:19)
[2017-01-09] MEDS: PANTOPRAZOLE 40MG TAB (PROTONIX) PO SCH (10:19)
[2017-01-09] MEDS: CALCITRIOL 0.25 MCG CAP (S0169) PO SCH (10:19)
[2017-01-09] MEDS: CALCIUM CARBONATE 500 MG CHEW U/D PO SCH (10:19)
[2017-01-09] MEDS: ATENOLOL 25 MG TAB PO SCH (10:19)
[2017-01-09] MEDS: FERROUS SULFATE 325MG TAB PO SCH (10:20)
[2017-01-09] MEDS: SIMVASTATIN 20 MG TAB PO SCH (10:20)
[2017-01-09] MEDS: ALLOPURINOL 100 MG TAB PO SCH (10:20)
[2017-01-09] MEDS: POTASSIUM CHLORIDE 10 MEQ SR TABLET PO SCH (10:20)
[2017-01-09] MEDS: TORSEMIDE 20 MG TAB PO SCH ×2 (10:21→18:24)
[2017-01-09] MEDS: traMADol 50 MG TAB PO PRN (13:10)
[2017-01-09] MEDS ORDERED: MOM 30ML SUSPENSION UDC PO PRN (13:30)
[2017-01-09 14:00] VITALS: BP 149/70
--- NOTE | 2017-01-10 10:00 | DSES ---
DATE OF ADMISSION: 01/04/2017 DATE OF DISCHARGE: 01/09/2017 ATTENDING PHYSICIAN: Reyna Colmenares DO PRIMARY CARE PROVIDER: Dr. Alonso Hernandez. HISTORY OF PRESENT ILLNESS: 86-year-old gentleman who presented to [facility] Emergency Room due to lightheadedness with standing dizziness that had progressively worsened for approximately two weeks. The patient had been seen by primary care provider, had lab work completed and was advised to go to the emergency room immediately. Work-up showed a supratherapeutic INR at 6 in conjunction with some significant anemia. Hemoglobin was 8.7 and hematocrit 28.1 on presentation. The patient was subsequently admitted. HOSPITAL COURSE: The patient received one unit of packed red cells with some mild improvement. The patient continued to have a significantly elevated INR and received multiple doses of vitamin K until the INR came down. The patient had a positive heme stool. Discussed with the patient whether he was willing to proceed with work-up regarding a colonoscopy or esophagogastric duodenoscopy (EGD). The patient significantly declined and it was recommended by attending that he stop his Coumadin given the concern of a gastrointestinal (GI) bleed. The patient was agreeable and understood the risk. The patient has progressively improved. He has participated in physical therapy well. There was some concern with family that the patient is not eating or drinking well in caring for himself in the room. However, the patient is able to make his own decisions, he is alert and oriented times three. He declines placement in assisted living or senior living care. He is agreeable to going home and accepting services within the home. PHYSICAL EXAMINATION: VITAL SIGNS: Temperature afebrile. HEENT/NECK: Neck is supple without lymphadenopathy or jugular venous distention (JVD). CARDIOVASCULAR: Heart rhythm regular. PULMONARY: Lungs clear to auscultation bilaterally. ABDOMEN: Soft, nontender with positive bowel sounds in four quadrants. NEUROLOGIC: The patient is alert and oriented times three. He is aware of his date of . He states the year is 2016, Moses Bauer is the President. He is at [facility] and wishes to go home. ASSESSMENT: 1. Acute blood loss anemia secondary to supratherapeutic INR and positive heme occult on stool. 2. Diastolic congestive heart failure. 3. History of gout. 4. History of coronary artery disease. 5. Paroxysmal atrial fibrillation. 6. Dementia. 7. Chronic kidney disease. 8. Secondary hyperparathyroidism. 9. B12 deficiency. 10. Osteoarthritis. 11. Dyslipidemia. 12. Vitamin D deficiency. PLAN: The patient will be discharged home. Diet is as tolerated. Activity as tolerated. He will have some health services within the home. Followup with private care physician (PCP) within the next 5-7 days. DISCHARGE MEDICATIONS: - acetaminophen 650 mg by mouth every 4 hours as needed for pain - allopurinol 100 mg by mouth daily - aspirin 325 mg daily - atenolol 12.5 mg by mouth daily - calcitriol 0.5 mcg by mouth daily - calcium carbonate 1000 mg by mouth twice a day - vitamin B12 1000 mcg by mouth daily - iron 325 mg by mouth daily - simvastatin 20 mg by mouth daily - furosemide 20 mg by mouth twice a day - tramadol 50 mg by mouth three times a day as needed pain or fever The patient is discharged in stable, satisfactory condition. There were no further questions at the time of discharge.
== END 2017-01-09 20:15 | disposition home health service (06) | DRG 812 ==
LOC: M ED 20:27 → M ED INP 22:35 → M MSPAV 01-04 00:34
PROVIDERS: ADMIT Internal Medicine; ATTEND Family Medicine
PROC: 30253N1 (ICD-10-PCS; principal; 2017-01-03)
DX: D62 Acute posthemorrhagic anemia (principal); I50.32 Chronic diastolic (congestive) heart failure; N25.81 Secondary hyperparathyroidism of renal origin; D68.32 Hemorrhagic disorder due to extrinsic circulating anticoagulants; I48.0 Paroxysmal atrial fibrillation; M10.9 Gout, unspecified; I25.10 Atherosclerotic heart disease of native coronary artery without angina pectoris; F03.90 Unspecified dementia, unspecified severity, without behavioral disturbance, psychotic disturbance, mood disturbance, and anxiety; N18.9 Chronic kidney disease, unspecified; K21.9 Gastro-esophageal reflux disease without esophagitis; D63.1 Anemia in chronic kidney disease; D51.9 Vitamin B12 deficiency anemia, unspecified; F41.8 Other specified anxiety disorders; E55.9 Vitamin D deficiency, unspecified; I12.9 Hypertensive chronic kidney disease with stage 1 through stage 4 chronic kidney disease, or unspecified chronic kidney disease; Z95.1 Presence of aortocoronary bypass graft; Z79.01 Long term (current) use of anticoagulants; Z79.82 Long term (current) use of aspirin; Z79.891 Long term (current) use of opiate analgesic; Z79.899 Other long term (current) drug therapy; T45.515A Adverse effect of anticoagulants, initial encounter

== ENCOUNTER → 2017-01-03 | Outpatient (REF) | payer MEDICARE ==
[~2017-01-03] MED LIST changes: +IRON65TA PO; +ROCA0.5C PO; +TORS20TA2 PO; +TRAM50TA2 PO; +TUMS500C PO; +VITA100072 PO; +WARF05TA PO; +WARF4TAB51 PO; +calcitrol
[2017-01-03 16:02] LABS: ALBUMIN 2.7 GM/DL (3.2-5.2); ALBUMIN/GLOBULIN RATIO 0.84 (1.00-1.93); BASO % 0.1 % (0.0-1.0); BILIRUBIN,TOTAL 0.5 MG/DL (0.2-1.0); CALCIUM LEVEL 8.5 MG/DL (8.8-10.2); CREATININE FOR GFR 2.28 MG/DL (0.70-1.30); EOS # 0.1 K/mm3 (0.0-0.50); EOS % 0.5 % (0.0-3.0); LARGE UNSTAINED CELL # 0.2 K/mm3 (0.0-0.4); LARGE UNSTAINED CELL % 1.5 % (0.0-4.0); LYMPH # 0.9 K/mm3 (1.5-4.5); LYMPH % 6.3 % (24.0-44.0); MAGNESIUM LEVEL 2.4 MG/DL (1.8-2.4); MEAN CORPUSCULAR HEMOGLOBIN 26.8 pg (27.0-33.0); MEAN CORPUSCULAR HGB CONC 30.3 g/dl (32.0-36.5); MEAN CORPUSCULAR VOLUME 88.5 fl (80.0-96.0); MONO # 0.8 K/mm3 (0.0-0.8); MONO % 5.5 % (0.0-5.0); NEUTROPHILS # 12.8 K/mm3 (1.8-7.7); NEUTROPHILS % 86.1 % (36.0-66.0); PERCENT SATURATION 7.6 % (19.7-37.4); PLATELET COUNT, AUTOMATED 296 k/mm3 (150-450); RED CELL DISTRIBUTION WIDTH 15.3 % (11.5-14.5); TOTAL PROTEIN 5.9 GM/DL (6.4-8.2); URIC ACID 9.6 MG/DL (3.5-7.2); WHITE BLOOD COUNT 14.8 K/mm3 (4.0-10.0)
[2017-01-03 17:24] LABS: INR 5.46
== END ==
LOC: M SFHCPLAZ 11:55
PROVIDERS: ATTEND Family Medicine
DX: D50.9 Iron deficiency anemia, unspecified (principal); E21.3 Hyperparathyroidism, unspecified; I48.0 Paroxysmal atrial fibrillation; M47.26 Other spondylosis with radiculopathy, lumbar region

== ENCOUNTER 2017-01-12 20:33 | Inpatient (IN) | payer MEDICARE ==
[~2017-01-12] VITALS: Ht 177.8 cm; Wt 56.3 kg
[~2017-01-12 20:33] MED LIST changes: -ASPI81TA7
[2017-01-12] MEDS ORDERED: ASPI81TA7 (22:17)
[2017-01-12] MEDS ORDERED: GLYCERIN ADULT SUPP PR ONE (22:45)
[2017-01-12] MEDS ORDERED: LACTULOSE 20 GM/30 ML SYRUP UD PO ONE (22:45)
[2017-01-13 00:11] LABS: BASO % 0.1 % (0.0-1.0); EOS # 0.1 K/mm3 (0.0-0.50); EOS % 0.7 % (0.0-3.0); LARGE UNSTAINED CELL # 0.2 K/mm3 (0.0-0.4); LARGE UNSTAINED CELL % 1.3 % (0.0-4.0); LYMPH # 0.8 K/mm3 (1.5-4.5); LYMPH % 6.3 % (24.0-44.0); MEAN CORPUSCULAR HEMOGLOBIN 26.8 pg (27.0-33.0); MEAN CORPUSCULAR HGB CONC 30.6 g/dl (32.0-36.5); MEAN CORPUSCULAR VOLUME 87.6 fl (80.0-96.0); MONO # 0.7 K/mm3 (0.0-0.8); MONO % 5.8 % (0.0-5.0); NEUTROPHILS # 10.5 K/mm3 (1.8-7.7); NEUTROPHILS % 85.8 % (36.0-66.0); PLATELET COUNT, AUTOMATED 269 k/mm3 (150-450); RED CELL DISTRIBUTION WIDTH 15.7 % (11.5-14.5); WHITE BLOOD COUNT 12.3 K/mm3 (4.0-10.0)
[2017-01-13 00:46] LABS: ALBUMIN 2.4 GM/DL (3.2-5.2); ALBUMIN/GLOBULIN RATIO 0.65 (1.00-1.93); BILIRUBIN,DIRECT 0.3 MG/DL (0.0-0.2); BILIRUBIN,TOTAL 0.5 MG/DL (0.2-1.0); CALCIUM LEVEL 8.7 MG/DL (8.8-10.2); CREATININE FOR GFR 3.79 MG/DL (0.70-1.30); GLOMERULAR FILTRATION RATE 16.1 (>35); POTASSIUM SERUM 4.7 MEQ/L (3.5-5.1); TOTAL PROTEIN 6.1 GM/DL (6.4-8.2)
[2017-01-13] MEDS ORDERED: ASPI325T PO (03:32)
[2017-01-13] MEDS ORDERED: TRAM50TA2 PO (03:32)
[2017-01-13] MEDS ORDERED: ACET-654 PO (03:32)
[2017-01-13] MEDS ORDERED: FURO20TA2 PO (03:32)
[2017-01-13] MEDS ORDERED: FERR325T PO (03:32)
--- NOTE | 2017-01-13 04:11 | HPEPDOC ---
General Date of Admission Chief Complaint The patient is a 86-year-old male Presented to the ER because he was brought in by his daughter because of confusion. History of Present Illness Patient is an 86 year old male with a PMHx of SVT s/p ablation, paroxysmal atrial fibrillation (on aspirin alone), HTN, DLP, Dementia, CKD4, Gout, CAD s/p CABG x3, Diastolic CHF, OA, Vitamin D deficiency, Iron deficiency anemia, GERD who presented to the ER at the direction of his daughter. Patient is unsure why he is at the hospital upon questioning. He is a poor historian, most of his history has been acquired through prior records. Upon review of systems he reports no positive findings. Patients daughter was reported to have brought him in because of confusion. She is no longer present for questioning. Home Medications Scheduled Allopurinol (Allopurinol) 100 Mg Tab 100 MG PO DAILY (Reported) Aspirin (Aspirin) 325 Mg Tab 325 MG PO DAILY (Reported) Atenolol (Atenolol) 25 Mg Tab 12.5 MG PO DAILY (Reported) Calcitriol (Rocaltrol) 0.5 Mcg Cap 0.5 MCG PO DAILY (Reported) Calcium Carbonate (Tums) 500 Mg Chw 1,000 MG PO BID (Reported) Cyanocobalamin (Vitamin B12) 1,000 Mcg Tab 1,000 MCG PO DAILY (Reported) Ferrous Sulfate (Ferrous Sulfate) 325 Mg Tab 325 MG PO DAILY (Reported) Furosemide (Furosemide) 20 Mg Tab 20 MG PO BID (Reported) Simvastatin (Simvastatin) 20 Mg Tab 20 MG PO DAILY (Reported) Torsemide (Torsemide) 20 Mg Tab 20 MG PO BID (Reported) Scheduled PRN Acetaminophen (Acetaminophen) 325 Mg Tab 650 MG PO Q4H PRN PRN PAIN / FEVER ( Reported) Tramadol HCl (Tramadol HCl) 50 Mg Tab 50 MG PO TID PRN PRN PAIN (Reported) Allergies Coded Allergies: No Known Allergies (Verified Allergy, Unknown, 02/03/06) Past Medical History Medical History SVT s/p ablation, paroxysmal atrial fibrillation (on aspirin alone), HTN, DLP, Dementia, CKD4, Gout, CAD s/p CABG x3, Diastolic CHF, OA, Vitamin D deficiency, Iron deficiency anemia, GERD Surgical History CABG Family History - Non contributory Social History - Denies recent travel or sick contacts - Lives alone Review of Symptoms Other systems Patient has said no to all questions - however unreliable Constitutional: Denies weight loss, change in appetite, or recent trauma Eyes: No visual changes or eye pain Ears, Nose, Throat: Denies nose bleeds, or difficulty swallowing Cardiovascular: Denies chest pain, sweating, or orthopnea Respiratory: Denies cough, wheezing, or shortness of breath GI: Stuart nausea, vomiting, abdominal pain, diarrhea or constipation : Denies pain with urination or frequency Musculoskeletal: Denies joint pain or swelling Neuro / Psych: Denies muscle weakness or sensory loss Skin: No skin rashes noted All other review of systems negative; otherwise stated in history of present illness Vital Signs - Vitals: BP 138/67, HR 69, RR 18, Sat 99%RA, Temp 98.3F - General: Lying in bed, No acute distress, Speaking in full sentences, AAOx2 ( not oriented to place), Unaware of who the president is - HEENT: NC, AT, PERRLA, EOMI - CVS: RRR, +S1S2, - Murmurs / rubs / gallops - Lungs: Fair air entry bilaterally, Clear to auscultation, No wheezing / rales / rhonchi - Abdomen: Soft, Non-distended, Non-tender, + Bowel sounds x 4 - Extremities: + PPx4, No lower extremity edema, No calf tenderness - Neuro: No focal motor or sensory deficit - Skin: No visible rashes Laboratory Data Labs 24H Laboratory Tests 2 01/12/17 23:54: Urine Amorphous Sediment , Urine Appearance CLEAR, Urine Color YELLOW, Urine pH 5.0, Urine Specific [place] 1.012, Urine Protein NEGATIVE, Urine Glucose (UA) NEGATIVE, Urine Ketones NEGATIVE, Urine Urobilinogen 0.2, Urine Bilirubin NEGATIVE, Urine Leukocyte Esterase TRACEH, Urine Bacteria (Auto) NEGATIVE, Urine Blood NEGATIVE, Urine Calcium Carbonate Cryst(Auto) , Urine Calcium Oxalate Cryst (Auto) , Urine Calcium Phosphate [place] (Auto) , Urine Cellular Casts , Urine Cystine Crystals , Urine Granular Casts (Auto) , Urine Hyaline Casts (Auto) 4, Urine Leucine Crystals , Urine Mucus (Auto) SMALL, Urine Nitrite NEGATIVE, Urine Oval Fat Bodies (Auto) , Urine RBC (Auto) 0, Urine Renal Epithelial Cells , Urine Sperm (Auto) , Urine Squamous Epithelial Cells 0 , Urine Transitional Epithelial Cells , Urine Trichomonas (Auto) , Urine Triple Phosphate Cryst (Auto) , Urine Tyrosine Crystals , Urine Uric Acid Crystals ( Auto) , Urine WBC (Auto) 3, Urine Waxy Casts (Auto) , Urine Yeast-Like Cells ( Auto) 01/12/17 23:56: Aspartate Amino Transf (AST/SGOT) 18, Alanine Aminotransferase (ALT/SGPT) 17, Alkaline Phosphatase 104, Total Bilirubin 0.5, Direct Bilirubin 0.3H, Albumin 2.4L, Albumin/Globulin Ratio 0.65L, Anion Gap 12, White Blood Count 12.3H, Red Blood Count 3.52L, Hemoglobin 9.4L, Hematocrit 30.8L, Mean Corpuscular Volume 87.6, Mean Corpuscular Hemoglobin 26.8L, Mean Corpuscular Hemoglobin Concent 30.6L, Red Cell Distribution Width 15.7H, Platelet Count 269, Neutrophils (%) ( Auto) 85.8H, Lymphocytes (%) (Auto) 6.3L, Monocytes (%) (Auto) 5.8H, Eosinophils (%) (Auto) 0.7, Basophils (%) (Auto) 0.1, Neutrophils # (Auto) 10.5H , Lymphocytes # (Auto) 0.8L, Monocytes # (Auto) 0.7, Eosinophils # (Auto) 0.1, Basophils # (Auto) 0.0, Calcium Level 8.7L, Free Thyroxine Index 3.7, Glomerular Filtration Rate 16.1L, Large Unclassified Cells # 0.2, Large Unclassified Cells % 1.3, Thyroid Stimulating Hormone (TSH) 1.780, Thyroxine (T4 ) 9.0, Total Protein 6.1L, Triiodothyronine (T3) Uptake 41H 01/12/17 23:57: Ammonia 19 01/13/17 03:57: CBC/BMP Laboratory Tests 01/12/17 23:56 Red Blood Count 3.52 L, Mean Corpuscular Volume 87.6, Mean Corpuscular Hemoglobin 26.8 L, Mean Corpuscular Hemoglobin Concent 30.6 L, Red Cell Distribution Width 15.7 H, Neutrophils (%) (Auto) 85.8 H, Lymphocytes (%) (Auto ) 6.3 L, Monocytes (%) (Auto) 5.8 H, Eosinophils (%) (Auto) 0.7, Basophils (%) ( Auto) 0.1, Neutrophils # (Auto) 10.5 H, Lymphocytes # (Auto) 0.8 L, Monocytes # (Auto) 0.7, Eosinophils # (Auto) 0.1, Basophils # (Auto) 0.0 Microbiology Microbiology 01/12/17 Urine Culture, Received Pending Plan / VTE VTE Prophylaxis Ordered?: Yes Plan Plan Acute metabolic encephalopathy possibly 2/2 worsening baseline dementia, possibly 2/2 uremia - Presented to ER, brought in by daughter because of change in mental status - Oriented x2, not to place, no other findings on physical exam - No fever, mild leukocytosis (present chronically) - Will give some IV fluid hydration to see if uremia can improve, will hold diuretics for now - Patient has refused hemodialysis in the past - Will get social service agency director for termite exterminator placement options - Consider possible APS for patient abandonment LEDA on CKD3 possibly 2/2 pre-renal etiology 2/2 hypovolemia - Will hold diuretics - Will check urine electrolytes, osmolality - Will give IV fluid hydration trial Leukocytosis (chronic) - no positives on review of systems - UA without any signs of infection - CXR 01/12: without any abnormalities - will hold off on antibiotics at this time SVT s/p ablation - c/w atenolol with holding parameters Paroxysmal atrial fibrillation - c/w atenolol with holding parameters - has been taken off Coumadin given recent history of symptomatic anemia - c/w ASA alone HTN - c/w atenolol with holding parameters DLP - c/w simvastatin Gout - c/w allopurinol CAD s/p CABG x3 - c/w aspirin, simvastatin, atenolol Diastolic CHF - will hold torsemide and Lasix given LEDA OA - c/w tramadol Vitamin D deficiency - c/w vitamin D supplementation Iron deficiency anemia - c/w ferrous sulfate DVT prophylaxis - Will start SCDs BERNICE HERNANDEZ MD Jan 13, 2017 04:11
[2017-01-13] MEDS ORDERED: NS 1,000 ML IV SCH (04:15)
[2017-01-13] MEDS: ACETAMINOPHEN TAB 650MG DOSE (2X325MG) PO PRN ×2 (04:36→21:03)
[2017-01-13] MEDS: traMADol 50 MG TAB PO PRN ×2 (04:36→21:03)
[2017-01-13 04:37] LABS: INR 1.93
[2017-01-13 06:07] VITALS: BP 149/62
--- NOTE | 2017-01-13 07:48 | REP ---
Portable chest: Comparison is 01/07/2017. Sternotomy wires, cardiomegaly, small surgical clips adjacent to the aortic arch are again noted, unchanged. There are bilateral pleural effusions as previously. There is cardiomegaly as previously. The pulmonary vascular engorgement identified on the previous study has resolved. Signed by Buster Mathur MD 01/13/2017 07:39 A
[2017-01-13] MEDS ORDERED: FUROSEMIDE 20 MG TAB PO SCH (09:00)
[2017-01-13] MEDS ORDERED: TORSEMIDE 20 MG TAB PO SCH (09:00)
[2017-01-13] MEDS: ATENOLOL 25 MG TAB PO SCH (09:00)
[2017-01-13] MEDS: ASPIRIN 325 MG TAB PO SCH (09:54)
[2017-01-13] MEDS: CALCITRIOL 0.25 MCG CAP (S0169) PO SCH (09:54)
[2017-01-13] MEDS: ALLOPURINOL 100 MG TAB PO SCH (09:54)
[2017-01-13] MEDS: FERROUS SULFATE 325MG TAB PO SCH (09:54)
[2017-01-13] MEDS: CYANOCOBALAMIN 500 MCG TAB PO SCH (09:55)
[2017-01-13] MEDS: SIMVASTATIN 20 MG TAB PO SCH (09:55)
[2017-01-13] MEDS: CALCIUM CARBONATE 500 MG CHEW U/D PO SCH ×2 (09:55→21:04)
--- NOTE | 2017-01-13 10:43 | IPNPDOC ---
Subjective Date Seen The patient was seen on 01/13/17. Subjective Chief Complaint/HPI The patient is a 86-year-old male admitted with a reason for visit of Hospital Admission Due To Social Situation. Events since last encounter Denies c/o. states unaware why came in to hospital. Unable to recall prior events. Constitutional: Denies: Chills, Fever, Night Sweats Pulmonary: Denies: Cough, Dyspnea Cardiovascular: Denies: Chest Pain, Lt Headedness, Orthopnea, Palpitations, Paroxysmal Noc. Dyspnea Gastrointestinal: Denies: Abdominal Pain, Constipation, Diarrhea, Nausea, Vomiting Genitourinary: Denies: Dysuria, Frequency, Incontinence, Retention Psych: Reports: Mood Normal, Denies: Depression, Memory Issues Objective Physical Examination General Exam: Positive: Alert, No Acute Distress ENT Exam: Positive: Atraumatic, Mucous membr. moist/pink, Pharynx Normal Neck Exam: Positive: Supple, Negative: JVD, thyromegaly Chest Exam: Positive: Clear to auscultation, Normal air movement Heart Exam: Positive: Normal S1, Normal S2, Rate Normal, Regular Rhythm, Negative: Murmurs, Rubs Abdomen Exam: Positive: Normal bowel sounds, Soft, Negative: Hepatospenomegaly, Tenderness Psych Exam: Positive: Mental status NL, Mood NL, Other (alert to self, place and time. vague responses. ) Assessment /Plan Problems (1) Dementia Status: Chronic Problem Text: worsening, failed outpatient. (2) CKD (chronic kidney disease) Status: Chronic (3) HTN (hypertension) Status: Chronic (4) Afib Status: Chronic Plan/VTE VTE Prophylaxis Ordered?: Yes VS, I&O, 24H, [facility] Vital Signs/I&O Vital Signs Date Time Temp Pulse Resp B/P Pulse Ox O2 Delivery O2 Flow Rate FiO2 01/13/17 09:00 56 158/70 01/13/17 06:07 97.6 18 97 Room Air Laboratory Data 24H LABS Laboratory Tests 2 01/12/17 23:54: Urine Amorphous Sediment , Urine Appearance CLEAR, Urine Color YELLOW, Urine pH 5.0, Urine Specific [place] 1.012, Urine Protein NEGATIVE, Urine Glucose (UA) NEGATIVE, Urine Ketones NEGATIVE, Urine Urobilinogen 0.2, Urine Bilirubin NEGATIVE, Urine Leukocyte Esterase TRACEH, Urine Bacteria (Auto) NEGATIVE, Urine Blood NEGATIVE, Urine Calcium Carbonate Cryst(Auto) , Urine Calcium Oxalate Cryst (Auto) , Urine Calcium Phosphate [place] (Auto) , Urine Cellular Casts , Urine Cystine Crystals , Urine Granular Casts (Auto) , Urine Hyaline Casts (Auto) 4, Urine Leucine Crystals , Urine Mucus (Auto) SMALL, Urine Nitrite NEGATIVE, Urine Oval Fat Bodies (Auto) , Urine RBC (Auto) 0, Urine Renal Epithelial Cells , Urine Sperm (Auto) , Urine Squamous Epithelial Cells 0 , Urine Transitional Epithelial Cells , Urine Trichomonas (Auto) , Urine Triple Phosphate Cryst (Auto) , Urine Tyrosine Crystals , Urine Uric Acid Crystals ( Auto) , Urine WBC (Auto) 3, Urine Waxy Casts (Auto) , Urine Yeast-Like Cells ( Auto) 01/12/17 23:56: Aspartate Amino Transf (AST/SGOT) 18, Alanine Aminotransferase (ALT/SGPT) 17, Alkaline Phosphatase 104, Total Bilirubin 0.5, Direct Bilirubin 0.3H, Albumin 2.4L, Albumin/Globulin Ratio 0.65L, Anion Gap 12, White Blood Count 12.3H, Red Blood Count 3.52L, Hemoglobin 9.4L, Hematocrit 30.8L, Mean Corpuscular Volume 87.6, Mean Corpuscular Hemoglobin 26.8L, Mean Corpuscular Hemoglobin Concent 30.6L, Red Cell Distribution Width 15.7H, Platelet Count 269, Neutrophils (%) ( Auto) 85.8H, Lymphocytes (%) (Auto) 6.3L, Monocytes (%) (Auto) 5.8H, Eosinophils (%) (Auto) 0.7, Basophils (%) (Auto) 0.1, Neutrophils # (Auto) 10.5H , Lymphocytes # (Auto) 0.8L, Monocytes # (Auto) 0.7, Eosinophils # (Auto) 0.1, Basophils # (Auto) 0.0, Calcium Level 8.7L, Free Thyroxine Index 3.7, Glomerular Filtration Rate 16.1L, Large Unclassified Cells # 0.2, Large Unclassified Cells % 1.3, Thyroid Stimulating Hormone (TSH) 1.780, Thyroxine (T4 ) 9.0, Total Protein 6.1L, Triiodothyronine (T3) Uptake 41H 01/12/17 23:57: Ammonia 19 01/13/17 03:57: Prothromb Time International Ratio 1.93, Prothrombin Time 22.1H CBC/BMP Laboratory Tests 01/12/17 23:56 Red Blood Count 3.52 L, Mean Corpuscular Volume 87.6, Mean Corpuscular Hemoglobin 26.8 L, Mean Corpuscular Hemoglobin Concent 30.6 L, Red Cell Distribution Width 15.7 H, Neutrophils (%) (Auto) 85.8 H, Lymphocytes (%) (Auto ) 6.3 L, Monocytes (%) (Auto) 5.8 H, Eosinophils (%) (Auto) 0.7, Basophils (%) ( Auto) 0.1, Neutrophils # (Auto) 10.5 H, Lymphocytes # (Auto) 0.8 L, Monocytes # (Auto) 0.7, Eosinophils # (Auto) 0.1, Basophils # (Auto) 0.0 Microbiology Microbiology 01/12/17 Urine Culture, Received Pending Attending Note Attending Note Agree with findings and plan as documented by Ms Tam. Mari Tam Jan 13, 2017 10:43 Phillip Stuart MD Jan 13, 2017 14:40
[2017-01-13 14:00] VITALS: BP 147/69
[2017-01-13 22:00] VITALS: BP 158/70
[2017-01-14] MEDS: ACETAMINOPHEN TAB 650MG DOSE (2X325MG) PO PRN ×2 (05:41→20:21)
[2017-01-14] MEDS: traMADol 50 MG TAB PO PRN ×3 (05:41→20:21)
[2017-01-14 06:00] VITALS: BP 152/67
[2017-01-14 06:24] LABS: BASO % 0.1 % (0.0-1.0); EOS # 0.1 K/mm3 (0.0-0.50); LARGE UNSTAINED CELL # 0.2 K/mm3 (0.0-0.4); LARGE UNSTAINED CELL % 1.4 % (0.0-4.0); LYMPH # 0.7 K/mm3 (1.5-4.5); LYMPH % 5.3 % (24.0-44.0); MEAN CORPUSCULAR HEMOGLOBIN 26.8 pg (27.0-33.0); MEAN CORPUSCULAR HGB CONC 30.2 g/dl (32.0-36.5); MEAN CORPUSCULAR VOLUME 88.7 fl (80.0-96.0); MONO # 0.8 K/mm3 (0.0-0.8); MONO % 6.5 % (0.0-5.0); NEUTROPHILS # 10.6 K/mm3 (1.8-7.7); NEUTROPHILS % 85.8 % (36.0-66.0); PLATELET COUNT, AUTOMATED 285 k/mm3 (150-450); RED CELL DISTRIBUTION WIDTH 15.9 % (11.5-14.5); WHITE BLOOD COUNT 12.3 K/mm3 (4.0-10.0)
[2017-01-14 06:49] LABS: ALBUMIN 1.9 GM/DL (3.2-5.2); ALBUMIN/GLOBULIN RATIO 0.48 (1.00-1.93); BILIRUBIN,TOTAL 0.5 MG/DL (0.2-1.0); CALCIUM LEVEL 8.8 MG/DL (8.8-10.2); CREATININE FOR GFR 2.89 MG/DL (0.70-1.30); GLOMERULAR FILTRATION RATE 22.1 (>35); POTASSIUM SERUM 4.1 MEQ/L (3.5-5.1); TOTAL PROTEIN 5.9 GM/DL (6.4-8.2)
--- NOTE | 2017-01-14 08:54 | IPNPDOC ---
Subjective Date Seen The patient was seen on 01/14/17. Subjective Chief Complaint/HPI The patient is a 86-year-old male admitted with a reason for visit of Hospital Admission Due To Social Situation. Events since last encounter c/o constipation. requesting bowel meds. Denies c/o today. Constitutional: Denies: Chills, Fever, Night Sweats Pulmonary: Denies: Cough, Dyspnea Cardiovascular: Denies: Chest Pain, Lt Headedness, Orthopnea, Palpitations, Paroxysmal Noc. Dyspnea Gastrointestinal: Reports: Constipation, Denies: Abdominal Pain, Diarrhea, Nausea, Vomiting Genitourinary: Denies: Dysuria, Frequency, Incontinence, Retention Neurological: Reports: Confusion Objective Physical Examination General Exam: Positive: Alert, No Acute Distress ENT Exam: Positive: Atraumatic, Mucous membr. moist/pink, Pharynx Normal Neck Exam: Positive: Supple, Negative: JVD, thyromegaly Chest Exam: Positive: Clear to auscultation, Normal air movement Heart Exam: Positive: Normal S1, Normal S2, Rate Normal, Regular Rhythm, Negative: Murmurs, Rubs Abdomen Exam: Positive: Normal bowel sounds, Soft, Negative: Hepatospenomegaly, Tenderness Psych Exam: Positive: Mental status NL, Mood NL, Other (alert to self, vague responses today) Assessment /Plan Problems (1) Dementia Status: Chronic Problem Text: worsening, failed outpatient. PFS involved. Plan on transfer to LTC facility. (2) CKD (chronic kidney disease) Status: Chronic Problem Text: Cr. improved today. eating and drinking well. (3) HTN (hypertension) Status: Chronic (4) Afib Status: Chronic Plan/VTE VTE Prophylaxis Ordered?: Yes VS, I&O, 24H, [facility] Vital Signs/I&O Vital Signs Date Time Temp Pulse Resp B/P Pulse Ox O2 Delivery O2 Flow Rate FiO2 01/14/17 06:11 15 01/14/17 06:00 99.2 60 152/67 96 Room Air I&O- Last 24 Hours up to 6 AM 01/14/17 06:00 Intake Total 1840 ml Output Total 975 ml Balance 865 ml Laboratory Data 24H LABS Laboratory Tests 2 01/14/17 06:07: Blood Urea Nitrogen 64H, Creatinine 2.89H, Sodium Level 140, Potassium Level 4.1 , Chloride Level 105, Carbon Dioxide Level 26, Calcium Level 8.8, Aspartate Amino Transf (AST/SGOT) 18, Alanine Aminotransferase (ALT/SGPT) 13, Alkaline Phosphatase 92, Total Bilirubin 0.5, Total Protein 5.9L, Albumin 1.9#L, Albumin/ Globulin Ratio 0.48L, Anion Gap 9, White Blood Count 12.3H, Red Blood Count 3.24L, Hemoglobin 8.7L, Hematocrit 28.8L, Mean Corpuscular Volume 88.7, Mean Corpuscular Hemoglobin 26.8L, Mean Corpuscular Hemoglobin Concent 30.2L, Red Cell Distribution Width 15.9H, Platelet Count 285, Neutrophils (%) (Auto) 85.8H , Lymphocytes (%) (Auto) 5.3L, Monocytes (%) (Auto) 6.5H, Eosinophils (%) (Auto ) 1.0, Basophils (%) (Auto) 0.1, Neutrophils # (Auto) 10.6H, Lymphocytes # (Auto ) 0.7L, Monocytes # (Auto) 0.8, Eosinophils # (Auto) 0.1, Basophils # (Auto) 0.0 , Glomerular Filtration Rate 22.1L, Large Unclassified Cells # 0.2, Large Unclassified Cells % 1.4 CBC/BMP Laboratory Tests 01/14/17 06:07 Calcium Level 8.8, Aspartate Amino Transf (AST/SGOT) 18, Alanine Aminotransferase (ALT/SGPT) 13, Alkaline Phosphatase 92, Total Bilirubin 0.5, Total Protein 5.9 L, Albumin 1.9 #L, Red Blood Count 3.24 L, Mean Corpuscular Volume 88.7, Mean Corpuscular Hemoglobin 26.8 L, Mean Corpuscular Hemoglobin Concent 30.2 L, Red Cell Distribution Width 15.9 H, Neutrophils (%) (Auto) 85.8 H, Lymphocytes (%) (Auto) 5.3 L, Monocytes (%) (Auto) 6.5 H, Eosinophils (%) ( Auto) 1.0, Basophils (%) (Auto) 0.1, Neutrophils # (Auto) 10.6 H, Lymphocytes # (Auto) 0.7 L, Monocytes # (Auto) 0.8, Eosinophils # (Auto) 0.1, Basophils # ( Auto) 0.0 Microbiology Microbiology 01/12/17 Urine Culture - Final, Complete Mari Tam CLINICAL RN MANAGER Jan 14, 2017 08:54
[2017-01-14] MEDS: FERROUS SULFATE 325MG TAB PO SCH (08:55)
[2017-01-14] MEDS: CALCITRIOL 0.25 MCG CAP (S0169) PO SCH (08:55)
[2017-01-14] MEDS: ASPIRIN 325 MG TAB PO SCH (08:55)
[2017-01-14] MEDS: ALLOPURINOL 100 MG TAB PO SCH (08:55)
[2017-01-14] MEDS: CALCIUM CARBONATE 500 MG CHEW U/D PO SCH ×2 (08:55→20:20)
[2017-01-14] MEDS: SIMVASTATIN 20 MG TAB PO SCH (08:55)
[2017-01-14] MEDS: CYANOCOBALAMIN 500 MCG TAB PO SCH (08:55)
[2017-01-14] MEDS: ATENOLOL 25 MG TAB PO SCH (08:58)
[2017-01-14] MEDS ORDERED: MOM 30ML SUSPENSION UDC PO PRN (09:00)
[2017-01-14 14:00] VITALS: BP 125/56
[2017-01-14] MEDS: SENNA 8.6 MG TAB (SENOKOT) PO SCH (20:20)
[2017-01-14 22:00] VITALS: BP 149/67
[2017-01-15 06:00] VITALS: BP 141/63
[2017-01-15 06:26] LABS: BASO % 0.1 % (0.0-1.0); EOS # 0.2 K/mm3 (0.0-0.50); EOS % 2.1 % (0.0-3.0); LARGE UNSTAINED CELL # 0.2 K/mm3 (0.0-0.4); LARGE UNSTAINED CELL % 1.9 % (0.0-4.0); LYMPH % 9.5 % (24.0-44.0); MEAN CORPUSCULAR HEMOGLOBIN 26.7 pg (27.0-33.0); MEAN CORPUSCULAR HGB CONC 29.9 g/dl (32.0-36.5); MEAN CORPUSCULAR VOLUME 89.2 fl (80.0-96.0); MONO # 0.6 K/mm3 (0.0-0.8); MONO % 7.1 % (0.0-5.0); NEUTROPHILS # 7.1 K/mm3 (1.8-7.7); NEUTROPHILS % 79.3 % (36.0-66.0); PLATELET COUNT, AUTOMATED 339 k/mm3 (150-450); RED CELL DISTRIBUTION WIDTH 15.9 % (11.5-14.5)
[2017-01-15 06:42] LABS: ALBUMIN 1.8 GM/DL (3.2-5.2); ALBUMIN/GLOBULIN RATIO 0.47 (1.00-1.93); BILIRUBIN,TOTAL 0.4 MG/DL (0.2-1.0); CALCIUM LEVEL 8.9 MG/DL (8.8-10.2); CREATININE FOR GFR 2.53 MG/DL (0.70-1.30); GLOMERULAR FILTRATION RATE 25.7 (>35); POTASSIUM SERUM 4.2 MEQ/L (3.5-5.1); TOTAL PROTEIN 5.6 GM/DL (6.4-8.2)
[2017-01-15] MEDS: ALLOPURINOL 100 MG TAB PO SCH (08:50)
[2017-01-15] MEDS: CYANOCOBALAMIN 500 MCG TAB PO SCH (08:50)
[2017-01-15] MEDS: CALCITRIOL 0.25 MCG CAP (S0169) PO SCH (08:50)
[2017-01-15] MEDS: CALCIUM CARBONATE 500 MG CHEW U/D PO SCH ×2 (08:50→20:11)
[2017-01-15] MEDS: FERROUS SULFATE 325MG TAB PO SCH (08:50)
[2017-01-15] MEDS: SIMVASTATIN 20 MG TAB PO SCH (08:50)
[2017-01-15] MEDS: ASPIRIN 325 MG TAB PO SCH (08:50)
[2017-01-15] MEDS: traMADol 50 MG TAB PO PRN (08:52)
[2017-01-15] MEDS: ATENOLOL 25 MG TAB PO SCH (08:57)
--- NOTE | 2017-01-15 11:07 | IPNPDOC ---
Subjective Date Seen The patient was seen on 01/15/17. Subjective Chief Complaint/HPI The patient is a 86-year-old male admitted with a reason for visit of Hospital Admission Due To Social Situation. Events since last encounter No c/o. Constitutional: Denies: Chills, Fever, Night Sweats Skin: Denies: Breakdown, Lesions, Rash Pulmonary: Denies: Cough, Dyspnea Cardiovascular: Denies: Chest Pain, Lt Headedness, Orthopnea, Palpitations, Paroxysmal Noc. Dyspnea Gastrointestinal: Denies: Abdominal Pain, Constipation, Diarrhea, Nausea, Vomiting Psych: Reports: Mood Normal, Denies: Depression, Memory Issues Objective Physical Examination General Exam: Positive: Alert, No Acute Distress ENT Exam: Positive: Atraumatic, Mucous membr. moist/pink, Pharynx Normal Neck Exam: Positive: Supple, Negative: JVD, thyromegaly Chest Exam: Positive: Clear to auscultation, Normal air movement Heart Exam: Positive: Normal S1, Normal S2, Rate Normal, Regular Rhythm, Negative: Murmurs, Rubs Abdomen Exam: Positive: Normal bowel sounds, Soft, Negative: Hepatospenomegaly, Tenderness Psych Exam: Positive: Mental status NL, Mood NL, Other (alert to self, vague responses today) Assessment /Plan Problems (1) Dementia Status: Chronic Problem Text: worsening, failed outpatient. PFS involved. Plan on transfer to LTC facility. (2) CKD (chronic kidney disease) Status: Chronic Problem Text: Cr. improved today. eating and drinking well. (3) HTN (hypertension) Status: Chronic (4) Afib Status: Chronic Plan/VTE VTE Prophylaxis Ordered?: Yes VS, I&O, 24H, [facility] Vital Signs/I&O Vital Signs Date Time Temp Pulse Resp B/P Pulse Ox O2 Delivery O2 Flow Rate FiO2 01/15/17 09:22 20 Room Air 01/15/17 08:57 72 144/65 01/15/17 06:00 97.9 94 I&O- Last 24 Hours up to 6 AM 01/15/17 06:00 Intake Total 1200 ml Output Total 550 ml Balance 650 ml Laboratory Data 24H LABS Laboratory Tests 2 01/15/17 05:54: Blood Urea Nitrogen 52H, Creatinine 2.53H, Sodium Level 141, Potassium Level 4.2 , Chloride Level 106, Carbon Dioxide Level 27, Calcium Level 8.9, Aspartate Amino Transf (AST/SGOT) 12L, Alanine Aminotransferase (ALT/SGPT) 12, Alkaline Phosphatase 87, Total Bilirubin 0.4, Total Protein 5.6L, Albumin 1.8L, Albumin/ Globulin Ratio 0.47L, Anion Gap 8, White Blood Count 9.0, Red Blood Count 3.30L , Hemoglobin 8.8L, Hematocrit 29.4L, Mean Corpuscular Volume 89.2, Mean Corpuscular Hemoglobin 26.7L, Mean Corpuscular Hemoglobin Concent 29.9L, Red Cell Distribution Width 15.9H, Platelet Count 339, Neutrophils (%) (Auto) 79.3H , Lymphocytes (%) (Auto) 9.5L, Monocytes (%) (Auto) 7.1H, Eosinophils (%) (Auto ) 2.1, Basophils (%) (Auto) 0.1, Neutrophils # (Auto) 7.1, Lymphocytes # (Auto) 1.0L, Monocytes # (Auto) 0.6, Eosinophils # (Auto) 0.2, Basophils # (Auto) 0.0, Glomerular Filtration Rate 25.7L, Large Unclassified Cells # 0.2, Large Unclassified Cells % 1.9 CBC/BMP Laboratory Tests 01/15/17 05:54 Calcium Level 8.9, Aspartate Amino Transf (AST/SGOT) 12 L, Alanine Aminotransferase (ALT/SGPT) 12, Alkaline Phosphatase 87, Total Bilirubin 0.4, Total Protein 5.6 L, Albumin 1.8 L, Red Blood Count 3.30 L, Mean Corpuscular Volume 89.2, Mean Corpuscular Hemoglobin 26.7 L, Mean Corpuscular Hemoglobin Concent 29.9 L, Red Cell Distribution Width 15.9 H, Neutrophils (%) (Auto) 79.3 H, Lymphocytes (%) (Auto) 9.5 L, Monocytes (%) (Auto) 7.1 H, Eosinophils (%) ( Auto) 2.1, Basophils (%) (Auto) 0.1, Neutrophils # (Auto) 7.1, Lymphocytes # ( Auto) 1.0 L, Monocytes # (Auto) 0.6, Eosinophils # (Auto) 0.2, Basophils # (Auto ) 0.0 Microbiology Microbiology 01/12/17 Urine Culture - Final, Complete Mari Tam RISK REDUCTION COUNSELOR Jan 15, 2017 11:07
[2017-01-15 14:00] VITALS: BP 129/60
[2017-01-15] MEDS: ACETAMINOPHEN TAB 650MG DOSE (2X325MG) PO PRN (20:11)
[2017-01-15] MEDS: SENNA 8.6 MG TAB (SENOKOT) PO SCH (20:11)
[2017-01-15 22:00] VITALS: BP 151/94
[2017-01-16 06:00] VITALS: BP 149/67
[2017-01-16 06:08] LABS: BASO % 0.1 % (0.0-1.0); EOS # 0.2 K/mm3 (0.0-0.50); EOS % 2.7 % (0.0-3.0); LARGE UNSTAINED CELL # 0.2 K/mm3 (0.0-0.4); LARGE UNSTAINED CELL % 1.9 % (0.0-4.0); LYMPH # 0.9 K/mm3 (1.5-4.5); LYMPH % 10.1 % (24.0-44.0); MEAN CORPUSCULAR HEMOGLOBIN 26.5 pg (27.0-33.0); MEAN CORPUSCULAR HGB CONC 29.9 g/dl (32.0-36.5); MEAN CORPUSCULAR VOLUME 88.4 fl (80.0-96.0); MONO # 0.7 K/mm3 (0.0-0.8); MONO % 7.7 % (0.0-5.0); NEUTROPHILS # 6.6 K/mm3 (1.8-7.7); NEUTROPHILS % 77.5 % (36.0-66.0); PLATELET COUNT, AUTOMATED 380 k/mm3 (150-450); RED CELL DISTRIBUTION WIDTH 15.9 % (11.5-14.5); WHITE BLOOD COUNT 8.5 K/mm3 (4.0-10.0)
[2017-01-16 06:30] LABS: ALBUMIN 1.8 GM/DL (3.2-5.2); ALBUMIN/GLOBULIN RATIO 0.47 (1.00-1.93); BILIRUBIN,TOTAL 0.4 MG/DL (0.2-1.0); CALCIUM LEVEL 9.3 MG/DL (8.8-10.2); CREATININE FOR GFR 2.53 MG/DL (0.70-1.30); GLOMERULAR FILTRATION RATE 25.7 (>35); POTASSIUM SERUM 4.2 MEQ/L (3.5-5.1); TOTAL PROTEIN 5.6 GM/DL (6.4-8.2)
[2017-01-16] MEDS: CALCIUM CARBONATE 500 MG CHEW U/D PO SCH ×2 (08:48→21:33)
[2017-01-16] MEDS: ASPIRIN 325 MG TAB PO SCH (08:48)
[2017-01-16] MEDS: CALCITRIOL 0.25 MCG CAP (S0169) PO SCH (08:48)
[2017-01-16] MEDS: CYANOCOBALAMIN 500 MCG TAB PO SCH (08:48)
[2017-01-16] MEDS: ALLOPURINOL 100 MG TAB PO SCH (08:48)
[2017-01-16] MEDS: SIMVASTATIN 20 MG TAB PO SCH (08:48)
[2017-01-16] MEDS: FERROUS SULFATE 325MG TAB PO SCH (08:48)
[2017-01-16] MEDS: ATENOLOL 25 MG TAB PO SCH (08:49)
[2017-01-16] MEDS: SENNA 8.6 MG TAB (SENOKOT) PO SCH (21:34)
--- NOTE | 2017-01-17 01:47 | IPNPDOC ---
Subjective Date Seen The patient was seen on 01/16/17. Subjective Chief Complaint/HPI The patient is a 86-year-old male admitted with a reason for visit of Hospital Admission Due To Social Situation. Events since last encounter Staff feel that it is likely that patient will have placement tomorrow. Discussed in broad terms with patient. Patient states that he knows his family is "planning something," but that it is a family matter and he prefers not to discuss it with me. He then states that it will be OK, he loves his family and knows they love him. 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 Pulmonary: Denies: Cough, Dyspnea Cardiovascular: Denies: Chest Pain Gastrointestinal: Denies: Abdominal Pain, Constipation, Diarrhea, Nausea, Vomiting Neurological: Denies: Change in speech, Numbness, Weakness Objective Physical Examination General Exam: Positive: Alert, No Acute Distress ENT Exam: Positive: Atraumatic, Mucous membr. moist/pink, Pharynx Normal Neck Exam: Positive: Supple, Negative: JVD, thyromegaly Chest Exam: Positive: Clear to auscultation, Normal air movement Heart Exam: Positive: Normal S1, Normal S2, Rate Normal, Regular Rhythm, Negative: Murmurs, Rubs Abdomen Exam: Positive: Normal bowel sounds, Soft, Negative: Hepatospenomegaly, Tenderness Psych Exam: Positive: Mental status NL, Mood NL, Other (alert to self, vague responses today) Assessment /Plan Problems (1) Dementia Status: Chronic Problem Text: worsening, failed outpatient. PFS involved. Plan on transfer to LTC facility. (2) CKD (chronic kidney disease) Status: Chronic Problem Text: Cr. improved today. eating and drinking well. (3) HTN (hypertension) Status: Chronic (4) Afib Status: Chronic Plan/VTE VTE Prophylaxis Ordered?: Yes VS, I&O, 24H, Fishbone Vital Signs/I&O Vital Signs Date Time Temp Pulse Resp B/P Pulse Ox O2 Delivery O2 Flow Rate FiO2 01/16/17 21:35 Room Air 01/16/17 08:49 69 137/61 01/16/17 06:00 98.5 16 97 I&O- Last 24 Hours up to 6 AM 01/17/17 06:00 Intake Total 1320 ml Output Total 450 ml Balance 870 ml Laboratory Data 24H LABS Laboratory Tests 2 01/16/17 05:41: Blood Urea Nitrogen 48H, Creatinine 2.53H, Sodium Level 139, Potassium Level 4.2 , Chloride Level 103, Carbon Dioxide Level 28, Calcium Level 9.3, Aspartate Amino Transf (AST/SGOT) 13L, Alanine Aminotransferase (ALT/SGPT) 11L, Alkaline Phosphatase 86, Total Bilirubin 0.4, Total Protein 5.6L, Albumin 1.8L, Albumin/ Globulin Ratio 0.47L, Anion Gap 8, White Blood Count 8.5, Red Blood Count 3.15L , Hemoglobin 8.3L, Hematocrit 27.9L, Mean Corpuscular Volume 88.4, Mean Corpuscular Hemoglobin 26.5L, Mean Corpuscular Hemoglobin Concent 29.9L, Red Cell Distribution Width 15.9H, Platelet Count 380, Neutrophils (%) (Auto) 77.5H , Lymphocytes (%) (Auto) 10.1L, Monocytes (%) (Auto) 7.7H, Eosinophils (%) (Auto ) 2.7, Basophils (%) (Auto) 0.1, Neutrophils # (Auto) 6.6, Lymphocytes # (Auto) 0.9L, Monocytes # (Auto) 0.7, Eosinophils # (Auto) 0.2, Basophils # (Auto) 0.0, Glomerular Filtration Rate 25.7L, Large Unclassified Cells # 0.2, Large Unclassified Cells % 1.9 CBC/BMP Laboratory Tests 01/16/17 05:41 Calcium Level 9.3, Aspartate Amino Transf (AST/SGOT) 13 L, Alanine Aminotransferase (ALT/SGPT) 11 L, Alkaline Phosphatase 86, Total Bilirubin 0.4, Total Protein 5.6 L, Albumin 1.8 L, Red Blood Count 3.15 L, Mean Corpuscular Volume 88.4, Mean Corpuscular Hemoglobin 26.5 L, Mean Corpuscular Hemoglobin Concent 29.9 L, Red Cell Distribution Width 15.9 H, Neutrophils (%) (Auto) 77.5 H, Lymphocytes (%) (Auto) 10.1 L, Monocytes (%) (Auto) 7.7 H, Eosinophils (%) ( Auto) 2.7, Basophils (%) (Auto) 0.1, Neutrophils # (Auto) 6.6, Lymphocytes # ( Auto) 0.9 L, Monocytes # (Auto) 0.7, Eosinophils # (Auto) 0.2, Basophils # (Auto ) 0.0 Microbiology Microbiology 01/12/17 Urine Culture - Final, Complete CLARISSE MUHAMMAD DO Jan 17, 2017 01:47
[2017-01-17 06:00] VITALS: BP 150/66
[2017-01-17] MEDS: ATENOLOL 25 MG TAB PO SCH (08:50)
[2017-01-17] MEDS: ASPIRIN 325 MG TAB PO SCH (08:50)
[2017-01-17] MEDS: SIMVASTATIN 20 MG TAB PO SCH (08:50)
[2017-01-17] MEDS: CALCIUM CARBONATE 500 MG CHEW U/D PO SCH ×2 (08:50→20:33)
[2017-01-17] MEDS: ALLOPURINOL 100 MG TAB PO SCH (08:50)
[2017-01-17] MEDS: FERROUS SULFATE 325MG TAB PO SCH (08:50)
[2017-01-17] MEDS: CALCITRIOL 0.25 MCG CAP (S0169) PO SCH (08:50)
[2017-01-17] MEDS: CYANOCOBALAMIN 500 MCG TAB PO SCH (08:50)
[2017-01-17 11:16] LABS: MEAN CORPUSCULAR HEMOGLOBIN 27.3 pg (27.0-33.0); MEAN CORPUSCULAR HGB CONC 30.9 g/dl (32.0-36.5); MEAN CORPUSCULAR VOLUME 88.5 fl (80.0-96.0); RED CELL DISTRIBUTION WIDTH 15.6 % (11.5-14.5); WHITE BLOOD COUNT 11.4 K/mm3 (4.0-10.0)
[2017-01-17 11:33] LABS: CALCIUM LEVEL 9.9 MG/DL (8.8-10.2); CREATININE FOR GFR 2.49 MG/DL (0.70-1.30); GLOMERULAR FILTRATION RATE 26.2 (>35); POTASSIUM SERUM 4.5 MEQ/L (3.5-5.1)
--- NOTE | 2017-01-17 19:14 | IPNPDOC ---
Subjective Date Seen The patient was seen on 01/17/17. Subjective Chief Complaint/HPI The patient is a 86-year-old male admitted with a reason for visit of Hospital Admission Due To Social Situation. Events since last encounter Patient is sleeping soundly. Awaiting bed at [facility] or [facility]. General: Reports: ROS Unobtainable Objective Physical Examination General Exam: Positive: No Acute Distress ENT Exam: Positive: Atraumatic Assessment /Plan Problems (1) Dementia Status: Chronic Problem Text: Awaiting bed at [facility] or [facility]. (2) CKD (chronic kidney disease) Status: Chronic Problem Text: Stable CK D (3) HTN (hypertension) Status: Chronic Problem Text: Blood pressure controlled (4) Afib Status: Chronic Plan/VTE VTE Prophylaxis Ordered?: Yes VS, I&O, 24H, Fishbone Vital Signs/I&O Vital Signs Date Time Temp Pulse Resp B/P Pulse Ox O2 Delivery O2 Flow Rate FiO2 01/17/17 09:00 Room Air 01/17/17 08:50 52 136/62 01/17/17 06:00 99.5 18 97 I&O- Last 24 Hours up to 6 AM 01/17/17 06:00 Intake Total 1320 ml Output Total 700 ml Balance 620 ml Laboratory Data 24H LABS Laboratory Tests 2 01/17/17 10:55: Anion Gap 8, Blood Urea Nitrogen 45H, Creatinine 2.49H, Sodium Level 138, Potassium Level 4.5, Chloride Level 101, Carbon Dioxide Level 29, Calcium Level 9.9, Glomerular Filtration Rate 26.2L CBC/BMP Laboratory Tests 01/17/17 10:55 Calcium Level 9.9, Red Blood Count 3.31 L, Mean Corpuscular Volume 88.5, Mean Corpuscular Hemoglobin 27.3, Mean Corpuscular Hemoglobin Concent 30.9 L, Red Cell Distribution Width 15.6 H Microbiology Microbiology 01/12/17 Urine Culture - Final, Complete PORTER BREAUX MD Jan 17, 2017 19:14 Microbiology Microbiology 01/12/17 Urine Culture - Final, Complete PORTER BREAUX MD Jan 17, 2017 19:14
[2017-01-17] MEDS: SENNA 8.6 MG TAB (SENOKOT) PO SCH (20:33)
[2017-01-17] MEDS: traMADol 50 MG TAB PO PRN (23:58)
[2017-01-18 09:00] VITALS: BP 133/62
[2017-01-18] MEDS: ATENOLOL 25 MG TAB PO SCH (09:00)
[2017-01-18] MEDS: CALCITRIOL 0.25 MCG CAP (S0169) PO SCH (09:01)
[2017-01-18] MEDS: ASPIRIN 325 MG TAB PO SCH (09:02)
[2017-01-18] MEDS: ALLOPURINOL 100 MG TAB PO SCH (09:02)
[2017-01-18] MEDS: FERROUS SULFATE 325MG TAB PO SCH (09:02)
[2017-01-18] MEDS: CYANOCOBALAMIN 500 MCG TAB PO SCH (09:02)
[2017-01-18] MEDS: CALCIUM CARBONATE 500 MG CHEW U/D PO SCH (09:02)
[2017-01-18] MEDS: SIMVASTATIN 20 MG TAB PO SCH (09:02)
[2017-01-18] MEDS ORDERED: SENN1TAB4 PO (10:24)
[2017-01-18] MEDS ORDERED: MILKSUS PO (10:24)
--- NOTE | 2017-01-19 07:36 | DSES ---
DATE OF ADMISSION: 01/13/2017 DATE OF DISCHARGE: 01/18/2017 BRIEF HISTORY AND PHYSICAL: The patient is an 86-year-old brought to the emergency room by his daughter for confusion. PAST MEDICAL HISTORY: Significant for: 1. Supraventricular tachycardia (SVT) status post ablation. 2. Paroxysmal atrial fibrillation, on aspirin alone. 3. Hypertension. 4. Dyslipidemia. 5. Dementia. 6. Chronic kidney disease, stage IV. 7. Gout. 8. Coronary artery disease. 9. 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 10. Diastolic congestive heart failure. 11. Osteoarthritis. 12. Vitamin D deficiency. 13. Iron deficiency anemia. 14. Gastroesophageal reflux disease. PERTINENT LABORATORIES ON ADMISSION: White count 12.3, hemoglobin 9.4, platelets 269,000. Sodium 141, potassium 4.7, BUN 72, creatinine 3.79, glucose 123. HOSPITAL COURSE: 1. Acute metabolic encephalopathy secondary to worsening baseline dementia and uremia. His diuretics were held, and he was given gentle intravenous (IV) fluid hydration. His renal function has returned back toward his baseline. His diuretics remain on hold. He is eating well but remains confused. 2. Acute on chronic renal failure. He has refused dialysis in the past. His diuretics were held. He was given gentle IV fluid hydration. His renal function returned to baseline and has been stable. 3. Chronic anemia. His hemoglobin was 8.6 on admission, which is lower than baseline, but he remained stable throughout the hospitalization. He did have a nosebleed that caused his hemoglobin to drift down slightly but not significantly, and that has essentially stabilized with a hemoglobin of around 9. He is on B12 and iron, and it is not clear whether he has ever had any gastrointestinal (GI) workup in the past, but his advanced age and dementia preclude him from being able to pursue this at this time. 4. Dementia, progressively worsening. He requires placement. 5. History of atrial fibrillation. His rate is controlled, and he is on aspirin for anticoagulation. DISPOSITION: He is stable for transfer to [facility]. MEDICATIONS: - milk of magnesia 30 mL daily as needed for constipation - senna two tablets daily - acetaminophen 650 mg every 4 hours as needed for pain or fever - allopurinol 100 mg daily - aspirin 325 mg daily - atenolol 12.5 mg daily - Rocaltrol 0.5 mcg daily - calcium carbonate 1000 mcg twice a day - B12 at 1000 mcg daily - iron sulfate 325 mg daily - simvastatin 20 mg daily - tramadol 50 mg three times a day as needed for pain His furosemide and torsemide were discontinued on admission. DISCHARGE DIAGNOSES: 1. Acute metabolic encephalopathy. 2. Acute on chronic renal failure. 3. Chronic anemia. 4. Advancing dementia. 5. History of atrial fibrillation.
== END 2017-01-18 11:30 | DRG 884 ==
LOC: M ED 23:42 → M ED INP 01-13 03:52 → M MSPAV 01-13 06:07 → OBSVTOIN 01-13 09:45
PROVIDERS: ADMIT Internal Medicine; ATTEND Family Medicine
DX: F03.90 Unspecified dementia, unspecified severity, without behavioral disturbance, psychotic disturbance, mood disturbance, and anxiety (principal); N18.4 Chronic kidney disease, stage 4 (severe); I50.32 Chronic diastolic (congestive) heart failure; I13.0 Hypertensive heart and chronic kidney disease with heart failure and stage 1 through stage 4 chronic kidney disease, or unspecified chronic kidney disease; G32.89 Other specified degenerative disorders of nervous system in diseases classified elsewhere; I48.0 Paroxysmal atrial fibrillation; E78.5 Hyperlipidemia, unspecified; I25.10 Atherosclerotic heart disease of native coronary artery without angina pectoris; M10.9 Gout, unspecified; M19.90 Unspecified osteoarthritis, unspecified site; D72.829 Elevated white blood cell count, unspecified; K59.00 Constipation, unspecified; E55.9 Vitamin D deficiency, unspecified; D50.9 Iron deficiency anemia, unspecified; K21.9 Gastro-esophageal reflux disease without esophagitis; Z79.82 Long term (current) use of aspirin; Z79.899 Other long term (current) drug therapy; Z95.1 Presence of aortocoronary bypass graft

== ENCOUNTER → 2017-01-12 | Outpatient (REF) | payer MEDICARE ==
[~2017-01-12] MED LIST changes: +ASPI81TA7; +IRON65TA PO; +ROCA0.5C PO; +TORS20TA2 PO; +TRAM50TA2 PO; +TUMS500C PO; +VITA100072 PO; +WARF05TA PO; +WARF4TAB51 PO; +calcitrol
[2017-01-12 13:10] LABS: ALBUMIN 2.7 GM/DL (3.2-5.2); ALBUMIN/GLOBULIN RATIO 0.66 (1.00-1.93); BILIRUBIN,TOTAL 0.5 MG/DL (0.2-1.0); CALCIUM LEVEL 8.8 MG/DL (8.8-10.2); CREATININE FOR GFR 3.36 MG/DL (0.70-1.30); GLOMERULAR FILTRATION RATE 18.5 (>35); PERCENT SATURATION 8.9 % (19.7-37.4); POTASSIUM SERUM 4.9 MEQ/L (3.5-5.1); TOTAL PROTEIN 6.8 GM/DL (6.4-8.2)
[2017-01-12 13:21] LABS: BASO % 0.1 % (0.0-1.0); EOS # 0.1 K/mm3 (0.0-0.50); EOS % 0.8 % (0.0-3.0); LARGE UNSTAINED CELL # 0.1 K/mm3 (0.0-0.4); LARGE UNSTAINED CELL % 1.1 % (0.0-4.0); LYMPH % 7.2 % (24.0-44.0); MEAN CORPUSCULAR HEMOGLOBIN 26.4 pg (27.0-33.0); MEAN CORPUSCULAR HGB CONC 29.4 g/dl (32.0-36.5); MEAN CORPUSCULAR VOLUME 89.7 fl (80.0-96.0); MONO # 0.6 K/mm3 (0.0-0.8); NEUTROPHILS # 10.9 K/mm3 (1.8-7.7); NEUTROPHILS % 85.8 % (36.0-66.0); PLATELET COUNT, AUTOMATED 279 k/mm3 (150-450); RED CELL DISTRIBUTION WIDTH 15.7 % (11.5-14.5); WHITE BLOOD COUNT 12.6 K/mm3 (4.0-10.0)
[2017-01-13 10:18] LABS: CARCINOEMBRYONIC ANTIGEN 2.2 NG/ML (<2.5)
== END ==
LOC: M SFHCPLAZ 09:59
PROVIDERS: ATTEND Family Medicine
DX: I50.30 Unspecified diastolic (congestive) heart failure (principal); D50.9 Iron deficiency anemia, unspecified; Z79.899 Other long term (current) drug therapy

== ENCOUNTER → 2017-01-26 | Outpatient (REF) ==
[~2017-01-26] MED LIST changes: +ASPI81TA7; +SENN1TAB4 PO
[2017-01-26 09:27] LABS: CREATININE FOR GFR 2.02 MG/DL (0.70-1.30)
[2017-01-26 09:28] LABS: CALCIUM LEVEL 9.5 MG/DL (8.8-10.2); GLOMERULAR FILTRATION RATE 33.4 (>35); URIC ACID 6.4 MG/DL (3.5-7.2)
[2017-01-26 10:23] LABS: POTASSIUM SERUM 5.3 MEQ/L (3.5-5.1)
[2017-01-26 12:29] LABS: BASO % 0.2 % (0.0-1.0); EOS # 0.1 K/mm3 (0.0-0.50); EOS % 0.9 % (0.0-3.0); LARGE UNSTAINED CELL # 0.2 K/mm3 (0.0-0.4); LARGE UNSTAINED CELL % 1.5 % (0.0-4.0); LYMPH # 0.7 K/mm3 (1.5-4.5); LYMPH % 7.2 % (24.0-44.0); MEAN CORPUSCULAR HEMOGLOBIN 25.6 pg (27.0-33.0); MEAN CORPUSCULAR HGB CONC 28.9 g/dl (32.0-36.5); MEAN CORPUSCULAR VOLUME 88.6 fl (80.0-96.0); MONO # 0.6 K/mm3 (0.0-0.8); NEUTROPHILS # 8.2 K/mm3 (1.8-7.7); NEUTROPHILS % 84.3 % (36.0-66.0); PLATELET COUNT, AUTOMATED 312 k/mm3 (150-450); RED CELL DISTRIBUTION WIDTH 15.2 % (11.5-14.5); WHITE BLOOD COUNT 9.8 K/mm3 (4.0-10.0)
== END ==
LOC: SKLAB7 09:27
PROVIDERS: ATTEND Family Medicine
DX: I50.9 Heart failure, unspecified (principal)

== ENCOUNTER → 2017-02-02 | Outpatient (REF) ==
[2017-02-02 08:31] LABS: BASO % 0.1 % (0.0-1.0); EOS # 0.1 K/mm3 (0.0-0.50); EOS % 0.8 % (0.0-3.0); LARGE UNSTAINED CELL # 0.2 K/mm3 (0.0-0.4); LARGE UNSTAINED CELL % 1.5 % (0.0-4.0); LYMPH # 1.5 K/mm3 (1.5-4.5); MEAN CORPUSCULAR HEMOGLOBIN 25.6 pg (27.0-33.0); MEAN CORPUSCULAR HGB CONC 29.8 g/dl (32.0-36.5); MEAN CORPUSCULAR VOLUME 85.8 fl (80.0-96.0); MONO # 0.7 K/mm3 (0.0-0.8); MONO % 5.6 % (0.0-5.0); NEUTROPHILS # 9.8 K/mm3 (1.8-7.7); PLATELET COUNT, AUTOMATED 376 k/mm3 (150-450); RED CELL DISTRIBUTION WIDTH 15.7 % (11.5-14.5); WHITE BLOOD COUNT 12.1 K/mm3 (4.0-10.0)
[2017-02-02 08:42] LABS: CREATININE FOR GFR 1.64 MG/DL (0.70-1.30); GLOMERULAR FILTRATION RATE 42.4 (>35); POTASSIUM SERUM 4.3 MEQ/L (3.5-5.1)
== END ==
LOC: SKLAB7 07:00
PROVIDERS: ATTEND Family Medicine
DX: I10 Essential (primary) hypertension (principal); I50.9 Heart failure, unspecified

== ENCOUNTER → 2017-02-13 | Outpatient (REF) | payer MEDICARE ==
[~2017-02-13] MED LIST changes: +ACET65SU PR; +ASPI32ECTA PO; +DULC10SU2 PR; +ENEMENE3 PR; +GABA-279 PO; +SENN8.6T10 PO; +VITMTA PO
== END ==
LOC: SKLAB7 17:10
PROVIDERS: ATTEND Family Medicine
DX: M54.5 Low back pain (principal); R41.0 Disorientation, unspecified

== ENCOUNTER → 2017-02-16 | Outpatient (REF) ==
[2017-02-16 15:59] LABS: TOTAL PROTEIN 5.3 GM/DL (6.4-8.2)
[2017-02-20 12:49] LABS: ALBUMIN 2.19 GM/DL (3.29-5.55); ALBUMIN % 41.4 % (55.8-66.1); GAMMA GLOBULIN % 13.4 % (11.1-18.8)
== END ==
LOC: SKLAB7 14:33
PROVIDERS: ATTEND Family Medicine
DX: M54.9 Dorsalgia, unspecified (principal)

== ENCOUNTER → 2017-02-16 | Outpatient (REF) ==
[2017-02-16 09:03] LABS: MEAN CORPUSCULAR HEMOGLOBIN 24.4 pg (27.0-33.0); MEAN CORPUSCULAR HGB CONC 28.7 g/dl (32.0-36.5); MEAN CORPUSCULAR VOLUME 84.8 fl (80.0-96.0); RED CELL DISTRIBUTION WIDTH 16.8 % (11.5-14.5); WHITE BLOOD COUNT 12.8 K/mm3 (4.0-10.0)
[2017-02-16 09:27] LABS: ALBUMIN 1.9 GM/DL (3.2-5.2); ALBUMIN/GLOBULIN RATIO 0.56 (1.00-1.93); BILIRUBIN,TOTAL 0.3 MG/DL (0.2-1.0); CALCIUM LEVEL 8.7 MG/DL (8.8-10.2); CREATININE FOR GFR 1.77 MG/DL (0.70-1.30); GLOMERULAR FILTRATION RATE 38.8 (>35); POTASSIUM SERUM 4.7 MEQ/L (3.5-5.1); TOTAL PROTEIN 5.3 GM/DL (6.4-8.2)
== END ==
LOC: SKLAB7 07:00
PROVIDERS: ATTEND Family Medicine
DX: N18.9 Chronic kidney disease, unspecified (principal)

== ENCOUNTER → 2017-02-16 | Outpatient (CLI) | payer MEDICARE ==
--- NOTE | 2017-02-16 13:40 | REP ---
THORACIC SPINE, FOUR VIEWS: HISTORY: Back pain. COMPARISON: 12/29/2016 There is no acute fracture or subluxation. There is loss of height of several lower thoracic intervertebral discs. Bridging anterior osteophytes are present throughout the thoracic spine. There is minimal velazco of height a lower thoracic vertebral body. The bony structure is osteopenic. IMPRESSION: Degenerative change as described above. Signed by Mata Steve MD 02/16/2017 01:45 P
--- NOTE | 2017-02-16 13:46 | REP ---
LUMBAR SPINE, FIVE VIEWS: HISTORY: Back pain. COMPARISON: 12/29/2016. There is a compression fracture of the L1 vertebral body with moderate height loss, new compared to the previous examination. There is no subluxation. The intervertebral discs are decreased in height consistent with disc degeneration. Osteophytes are present throughout the lumbar spine. There is narrowing of the L5-S1 facet joints. The bony structure is osteopenic. IMPRESSION: 1. There is a compression fracture of the L1 vertebral body with moderate height loss, new compared to the previous study. CT of the lumbar spine is recommended for further evaluation. 2. Degenerative change as described above. Signed by Mata Steve MD 02/16/2017 01:47 P
== END ==
LOC: M RAD 10:59
PROVIDERS: ATTEND Family Medicine
DX: M48.56XA Collapsed vertebra, not elsewhere classified, lumbar region, initial encounter for fracture (principal); M51.37 Other intervertebral disc degeneration, lumbosacral region; M51.84 Other intervertebral disc disorders, thoracic region; M85.88 Other specified disorders of bone density and structure, other site

== ENCOUNTER 2017-02-18 21:22 | Inpatient (IN) | payer MEDICARE ==
[~2017-02-18] VITALS: Ht 175.3 cm; Wt 62.1 kg
[~2017-02-18 21:22] MED LIST changes: -ACET65SU PR; -ASPI32ECTA PO; -DULC10SU2 PR; -ENEMENE3 PR; -GABA-279 PO; -SENN8.6T10 PO; -VITMTA PO
[2017-02-18 21:49] LABS: BASO % 0.1 % (0.0-1.0); EOS % 0.2 % (0.0-3.0); LARGE UNSTAINED CELL # 0.1 K/mm3 (0.0-0.4); LARGE UNSTAINED CELL % 0.7 % (0.0-4.0); LYMPH # 0.5 K/mm3 (1.5-4.5); MEAN CORPUSCULAR HEMOGLOBIN 24.7 pg (27.0-33.0); MEAN CORPUSCULAR HGB CONC 29.3 g/dl (32.0-36.5); MEAN CORPUSCULAR VOLUME 84.5 fl (80.0-96.0); MONO # 0.8 K/mm3 (0.0-0.8); MONO % 5.7 % (0.0-5.0); NEUTROPHILS # 12.7 K/mm3 (1.8-7.7); NEUTROPHILS % 90.3 % (36.0-66.0); PLATELET COUNT, AUTOMATED 394 k/mm3 (150-450); RED CELL DISTRIBUTION WIDTH 16.6 % (11.5-14.5); WHITE BLOOD COUNT 14.1 K/mm3 (4.0-10.0)
[2017-02-18 22:06] LABS: ALBUMIN 2.3 GM/DL (3.2-5.2); ALBUMIN/GLOBULIN RATIO 0.7 (1.00-1.93); BILIRUBIN,DIRECT 0.2 MG/DL (0.0-0.2); BILIRUBIN,TOTAL 0.5 MG/DL (0.2-1.0); CREATININE FOR GFR 2.26 MG/DL (0.70-1.30); GLOMERULAR FILTRATION RATE 29.3 (>35); POTASSIUM SERUM 4.9 MEQ/L (3.5-5.1); TOTAL PROTEIN 5.6 GM/DL (6.4-8.2)
[2017-02-18 22:17] LABS: ABG BASE EXCESS -0.3 (-2.0-2.0); ABG HCO3 23.7 MEQ/L (22.0-26.0); ABG PARTIAL PRESSURE CO2 35.7 mmHg (35.0-45.0); ABG PARTIAL PRESSURE O2 152.2 mmHg (75.0-100.0); ABG STANDARD HCO3 24.3 MEQ/L (22.0-26.0); ABG TOTAL CO2 24.8 MEQ/L (23.0-31.0)
[2017-02-18] MEDS ORDERED: IPRATROPIUM 0.5MG/ALBUTEROL 2.5MG INH SOL UD 3ML (DUONEB)(J7620) NEB ONE (22:45)
[2017-02-18] MEDS ORDERED: FUROSEMIDE 100 MG/10 ML VIAL (J1940) IV ONE (23:00)
--- NOTE | 2017-02-19 00:20 | REPUSA ---
CT of the chest without contrast Clinical statement:pneumonia. Technique: Multiple axial CT images were obtained with 5 mm cuts through the chest without administra tion of contrast. Coronal and sagittal reconstructions were also obtained. Comparison: 11/11/2016. Findings: There is no thoracic lymphadenopathy. The visualized portions of the thyroid gland is unrem arkable. The heart is enlarged. There are large bilateral pleural effusions with lower lobe infiltra arleen and consolidations. Consolidation is greater on the left. Limited imaging of the upper abdomen do es not demonstrate any acute abnormalities. There is severe destructive changes at L1/L2, with oste ophytic changes and erosive changes at the end plate. Impression: 1. Large bilateral lower lobe infiltrates and consolidation, worse on the left. Large bilateral pleur al effusions.. These findings have worsened since the prior study. 2. Cardiomegaly. 3. New destructive changes at L1/L2 with vertebral body height of L2. This was not seen on the prior study of October. This could represent a new interval compression fracture. MRI may be helpful for fu rther evaluation.
[2017-02-19] MEDS ORDERED: IMIPENEM/CILASTATIN 250 MG in D5W MINI-BAG PLUS 100 ML IV ONE (00:30)
[2017-02-19] MEDS ORDERED: VANCOMYCIN HCL 750 MG, VIAL MATE ADAPTER 1 EACH in D5W 250 ML IV ONE (00:30)
[2017-02-19] MEDS ORDERED: ACET65SU PR (00:59)
[2017-02-19] MEDS ORDERED: VITMTA PO (00:59)
[2017-02-19] MEDS ORDERED: ACET-654 PO (00:59)
[2017-02-19] MEDS ORDERED: ASPI32ECTA PO (00:59)
[2017-02-19] MEDS ORDERED: DULC10SU2 PR (00:59)
[2017-02-19] MEDS ORDERED: GABA-279 PO (00:59)
[2017-02-19] MEDS ORDERED: SENN8.6T10 PO (00:59)
[2017-02-19] MEDS ORDERED: ENEMENE3 PR (00:59)
[2017-02-19] MEDS ORDERED: BISACODYL 10 MG SUPP PR PRN (01:00)
[2017-02-19] MEDS ORDERED: traMADol 50 MG TAB PO PRN (01:00)
[2017-02-19] MEDS ORDERED: ACETAMINOPHEN TAB 650MG DOSE (2X325MG) PO PRN (01:00)
[2017-02-19] MEDS ORDERED: ONDANSETRON 4MG/2ML VIAL (J2405) IV PRN (01:00)
[2017-02-19] MEDS ORDERED: VANCOMYCIN HCL 1,000 MG, VIAL MATE ADAPTER 1 EACH in D5W 250 ML IV SCH (01:00)
[2017-02-19] MEDS ORDERED: FLEET ENEMA PR PRN (01:00)
[2017-02-19] MEDS ORDERED: MORPHINE 2 MG/ML 1ML SYRINGE IV ONE (01:30)
--- NOTE | 2017-02-19 02:19 | HPEPDOC ---
General Date of Admission Feb 19, 2017 at 00:57 Primary Care Physician: Agusto Rendon M.D. Attending Physician: Nnamdi Choudhary MD Chief Complaint The patient is a 86-year-old male admitted with a reason for visit of Healthcare Associated Pneumonia. Exam Limitations: Dementia History of Present Illness 86-year-old male resident of the [facility] with a past medical history of dementia, hypertension, CAD status post CABG, CKD, diastolic congestive heart failure, and GERD presented from [facility] with the report of fevers , cough productive of sputum, and increased agitation. Unfortunately, the patient's history is limited secondary to his advanced dementia. According to personnel, the patient has been increasingly lethargic during this time, and has appeared to be more agitated according to the staff. In addition, the patient has been requiring 2 L of supplemental oxygen via nasal cannula. At baseline, the patient does not require any oxygen. In the ER, a CT Scan of the Chest revealed Large bilateral lower lobe infiltrates and consolidation, worse on the left. Large bilateral pleural effusions. The patient will be admitted under the service of Dr. Choudhary of the [facility] for further evaluation and management of HCAP, decompensated congestive heart failure in the a.m. Home Medications Scheduled Acetaminophen (Acetaminophen) 325 Mg Tab 650 MG PO BID (Reported) Allopurinol (Allopurinol) 100 Mg Tab 100 MG PO DAILY (Reported) Aspirin (Aspirin EC) 325 Mg Tabec 325 MG PO DAILY (Reported) Atenolol (Atenolol) 25 Mg Tab 12.5 MG PO DAILY (Reported) Calcitriol (Rocaltrol) 0.5 Mcg Cap 0.5 MCG PO DAILY (Reported) Calcium Carbonate (Tums) 500 Mg Chw 1,000 MG PO BID (Reported) Cyanocobalamin (Vitamin B12) 1,000 Mcg Tab 1,000 MCG PO DAILY (Reported) Ferrous Sulfate (Ferrous Sulfate) 325 Mg Tab 325 MG PO DAILY (Reported) Gabapentin (Gabapentin) 100 Mg Cap 100 MG PO BID (Reported) Multivitamins *[facility] STOCKED* (Thera M Plus *[facility] STOCKED*) 1 Tab Tab 1 TAB PO DAILY (Reported) Senna (Senna Lax) 8.6 Mg Tab 2 TAB PO QHS (Reported) Simvastatin (Simvastatin) 20 Mg Tab 20 MG PO QHS (Reported) Scheduled PRN Acetaminophen (Acetaminophen) 325 Mg Tab 650 MG PO Q4H PRN PRN PAIN / FEVER ( Reported) Acetaminophen (Acetaminophen) 650 Mg Supp 650 MG OR Q4H PRN PRN PAIN / FEVER ( Reported) Bisacodyl (Dulcolax) 10 Mg Sup 10 MG OR DAILY PRN PRN CONSTIPATION (Reported) Sodium Phosphate/Biphosphate (Enema 7-19 gm/118Ml) 1 Oleksandr Oleksandr 1 OLEKSANDR OR DAILY PRN PRN CONSTIPATION (Reported) Tramadol HCl (Tramadol HCl) 50 Mg Tab 50 MG PO Q6H PRN PRN PAIN (Reported) Allergies Coded Allergies: No Known Allergies (Verified , 02/03/06) Past Medical History Medical History As noted in HPI. Surgical History Unable to obtain secondary to clinical condition Social History Patient is a resident of [facility], apparently is a nonsmoker according to previous documentation. Review of Symptoms Other systems Unable to reliably obtain secondary to the patient's advanced dementia. Physical Examination General Exam: Positive: Alert, No Acute Distress, Other (the patient does not answer questions appropriately when prompted) ENT Exam: Positive: Atraumatic, Mucous membr. moist/pink Chest Exam: Positive: Rales (bibasilar rales noted on auscultation), Rhonchi ( noted in the upper lung zones bilaterally) Heart Exam: Positive: Normal S1, Normal S2, Rate Normal Abdomen Exam: Positive: Soft, Negative: Tenderness Extremity Exam: Negative: Swelling, Tenderness Vital Signs Vital Signs Date Time Temp Pulse Resp B/P Pulse Ox O2 Delivery O2 Flow Rate FiO2 02/19/17 01:47 22 02/19/17 00:51 66 91 02/19/17 00:44 173/72 02/18/17 21:27 98.5 Nasal Cannula 2 Laboratory Data Labs 24H Laboratory Tests 2 02/18/17 21:32: Aspartate Amino Transf (AST/SGOT) 18, Alanine Aminotransferase (ALT/SGPT) 18, Alkaline Phosphatase 123H, Total Bilirubin 0.5#, Direct Bilirubin 0.2, Albumin 2.3#L, Albumin/Globulin Ratio 0.70L, Anion Gap 8, B-Type Natriuretic Peptide 1870H, White Blood Count 14.1H, Red Blood Count 3.43L, Hemoglobin 8.5L, Hematocrit 28.9L, Mean Corpuscular Volume 84.5, Mean Corpuscular Hemoglobin 24.7L, Mean Corpuscular Hemoglobin Concent 29.3L, Red Cell Distribution Width 16.6H, Platelet Count 394, Neutrophils (%) (Auto) 90.3H, Lymphocytes (%) (Auto) 3.0L, Monocytes (%) (Auto) 5.7H, Eosinophils (%) (Auto) 0.2, Basophils (%) (Auto ) 0.1, Neutrophils # (Auto) 12.7H, Lymphocytes # (Auto) 0.5L, Monocytes # (Auto ) 0.8, Eosinophils # (Auto) 0.0, Basophils # (Auto) 0.0, Calcium Level 9.0, Glomerular Filtration Rate 29.3L, Lactic Acid Level 1.7, Large Unclassified Cells # 0.1, Large Unclassified Cells % 0.7, Total Protein 5.6L 02/18/17 22:07: Arterial Blood pH 7.440, Arterial Blood Partial Pressure CO2 35.7, Arterial Blood Partial Pressure O2 152.2H, Arterial Blood Total CO2 24.8, Arterial Blood HCO3 23.7, Arterial Blood Base Excess -0.3, Arterial Blood Oxygen Saturation 99.4H, Blood Gas Bicarbonate Standard 24.3 02/18/17 22:11: Urine Amorphous Sediment , Urine Appearance CLEAR, Urine Color YELLOW, Urine pH 6.0, Urine Specific [place] 1.009, Urine Protein 2+H, Urine Glucose (UA) NEGATIVE, Urine Ketones NEGATIVE, Urine Urobilinogen 0.2, Urine Bilirubin NEGATIVE, Urine Leukocyte Esterase NEGATIVE, Urine Bacteria (Auto) NEGATIVE, Urine Blood NEGATIVE, Urine Calcium Carbonate Cryst(Auto) , Urine Calcium Oxalate Cryst (Auto) , Urine Calcium Phosphate [place] (Auto) , Urine Cellular Casts , Urine Cystine Crystals , Urine Granular Casts (Auto) , Urine Hyaline Casts (Auto) 0, Urine Leucine Crystals , Urine Mucus (Auto) , Urine Nitrite NEGATIVE, Urine Oval Fat Bodies (Auto) , Urine RBC (Auto) 0, Urine Renal Epithelial Cells , Urine Sperm (Auto) , Urine Squamous Epithelial Cells 0, Urine Transitional Epithelial Cells , Urine Trichomonas (Auto) , Urine Triple Phosphate Cryst (Auto) , Urine Tyrosine Crystals , Urine Uric Acid Crystals ( Auto) , Urine WBC (Auto) 1, Urine Waxy Casts (Auto) , Urine Yeast-Like Cells ( Auto) CBC/BMP Laboratory Tests 02/18/17 21:32 Red Blood Count 3.43 L, Mean Corpuscular Volume 84.5, Mean Corpuscular Hemoglobin 24.7 L, Mean Corpuscular Hemoglobin Concent 29.3 L, Red Cell Distribution Width 16.6 H, Neutrophils (%) (Auto) 90.3 H, Lymphocytes (%) (Auto ) 3.0 L, Monocytes (%) (Auto) 5.7 H, Eosinophils (%) (Auto) 0.2, Basophils (%) ( Auto) 0.1, Neutrophils # (Auto) 12.7 H, Lymphocytes # (Auto) 0.5 L, Monocytes # (Auto) 0.8, Eosinophils # (Auto) 0.0, Basophils # (Auto) 0.0 Microbiology Microbiology 02/19/17 Blood Culture, Received Pending 02/18/17 Blood Culture, Received Pending 02/18/17 Urine Culture, Received Pending Plan / VTE VTE Prophylaxis Ordered?: Yes Plan Plan Hypoxic respiratory failure likely secondary to decompensated congestive heart failure, healthcare acquired pneumonia CT scan of the chest noted Sputum cultures, blood cultures, respiratory panel ordered Patient will be empirically covered with vancomycin and Zosyn Patient given a one-time dose of Lasix 100 mg IV in the ER with noted improvement of shortness of breath We'll continue the patient on IV Lasix 40 mg twice a day Monitor I's and O's Daily weights We will continue to monitor the patient's respiratory status and down titrate supplemental oxygen as tolerated Leukocytosis Patient's white blood cell count noted to be 14.1K--however, upon further review it appears the patient's white blood cell count has been chronically elevated since June 2015 We will order a peripheral smear for further delineation of leukocytosis As noted above the patient has a ready had cultures ordered and empiric antibiotic therapy started Lactic acid level within normal limits Compression fracture of L1/L2 CT scan of the chest notable for new destructive changes at L1/L2 with vertebral body height of L2 Tramadol when necessary Consider MRI of the lumbar spine when more medically stable History of CAD status post CABG, diastolic CHF EKG with no acute ST changes Continue aspirin, statin, atenolol Continue IV Lasix therapy as noted above Chronic kidney disease stage 3 Serum creatinine appears to be at baseline Hypertension, stable Continue current regimen Gout Continue allopurinol DVT prophylaxis-heparin subcutaneous The patient will be admitted under the service of Dr. Choudhary, who will begin to follow the patient on 02/19/17 at 7 AM. REBECA MURDOCK MD Feb 19, 2017 02:19
[2017-02-19 02:50] VITALS: BP 180/70
[2017-02-19] MEDS: PIPERACILLIN/TAZOBACTAM SOD 3.375 GM in D5W MINI-BAG PLUS 50 ML IV SCH ×2 (04:00→09:02)
[2017-02-19] MEDS ORDERED: HEPARIN SOD (PORCINE) 5000 UNITS/ML VIAL SC SCH (06:00)
--- NOTE | 2017-02-19 06:16 | PHACANCOPD ---
PHARMACY VANCOMYCIN DOSING Pt Demographics Demographics Patient Age:86 , Weight:62.100 , Gender: male Adjusted Body Weight Date: 02/19/17, Adjusted Body Weight: [65.77]ACTUAL WT Kg Vancomycin Vancomycin indication: HCAP Vancomycin Target Ranges: 15-20 mcg/ml Vancomycin Load Y/N: No Load Dose Date Time Vancomycin Load Dose: Date: Time: Vancomycin Dose Date: 02/19/17. Current Vancomycin Dose: [750MG@02,THEN Q24@14] Intermittent Dosing?: No Labs Labs Laboratory Tests 02/18/17 21:32 Red Blood Count 3.43 L, Mean Corpuscular Volume 84.5, Mean Corpuscular Hemoglobin 24.7 L, Mean Corpuscular Hemoglobin Concent 29.3 L, Red Cell Distribution Width 16.6 H, Neutrophils (%) (Auto) 90.3 H, Lymphocytes (%) (Auto ) 3.0 L, Monocytes (%) (Auto) 5.7 H, Eosinophils (%) (Auto) 0.2, Basophils (%) ( Auto) 0.1, Neutrophils # (Auto) 12.7 H, Lymphocytes # (Auto) 0.5 L, Monocytes # (Auto) 0.8, Eosinophils # (Auto) 0.0, Basophils # (Auto) 0.0 Micro Microbiology 02/19/17 Blood Culture, Received Pending 02/18/17 Blood Culture, Received Pending 02/19/17 MRSA Screen, Resulted Pending 02/19/17 Respiratory Virus Panel (PCR) ([facility]) - Final, Resulted 02/18/17 Urine Culture, Received Pending Creatinine Clearance Date:02/19/17. Creatinine Clearance: [21]CALCULATED. Pending Labs Vanconycin trough due 02/20@1300 Assessment and Plan Maintaining Current Dose?: Yes Reason for dose change: No Dose Change Pharmacist Note Pharmacist Note Date: 02/19/17. Pharmacist note:[id number] NKDA,SCR=2.26 calculated CRCL=21 Admitting diagnosis =HCAP, treating w/ pip-tazo 3.375 G Q6H and Vancomycin per consult. Vancomycin 750mg administered in ED@0200: Will begin a regimen of 750mg IV Q24H to begin @1400 this afternoon -will dtaw first trough 02/20@1300. Will continue to follow levels and labs JESS PHILLIPS PHARMACY Feb 19, 2017 06:16
[2017-02-19 06:38] LABS: REASON FOR REVIEW COMPREHENSIVE REVIEW
[2017-02-19 06:45] LABS: ADD MORPHOLOGY? YES; BASO % 0.1 % (0.0-1.0); EOS % 0.1 % (0.0-3.0); LARGE UNSTAINED CELL # 0.2 K/mm3 (0.0-0.4); LARGE UNSTAINED CELL % 0.8 % (0.0-4.0); LYMPH # 0.7 K/mm3 (1.5-4.5); LYMPH % 3.6 % (24.0-44.0); MEAN CORPUSCULAR HEMOGLOBIN 25.4 pg (27.0-33.0); MEAN CORPUSCULAR HGB CONC 29.6 g/dl (32.0-36.5); MEAN CORPUSCULAR VOLUME 85.6 fl (80.0-96.0); NEUTROPHILS # 17.3 K/mm3 (1.8-7.7); NEUTROPHILS % 90.4 % (36.0-66.0); PLATELET COUNT, AUTOMATED 413 k/mm3 (150-450); RED CELL DISTRIBUTION WIDTH 16.7 % (11.5-14.5); WHITE BLOOD COUNT 19.1 K/mm3 (4.0-10.0)
[2017-02-19 07:03] LABS: CALCIUM LEVEL 9.9 MG/DL (8.8-10.2); CREATININE FOR GFR 2.24 MG/DL (0.70-1.30); GLOMERULAR FILTRATION RATE 29.6 (>35); MAGNESIUM LEVEL 1.9 MG/DL (1.8-2.4); POTASSIUM SERUM 4.1 MEQ/L (3.5-5.1)
[2017-02-19 07:17] LABS: ANISOCYTOSIS 1+; HYPOCHROMASIA 2+; POIKILOCYTOSIS 1+
--- NOTE | 2017-02-19 07:26 | ECGEPIP ---
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
--- NOTE | 2017-02-19 08:07 | REP ---
The portable chest, single frontal view, patient sitting: Comparison is 01/11/2017. There is motion artifact on the current study. Sternotomy wires, cardiomegaly and mediastinal surgical clips are unchanged. The interstitial markings are moderately coarsened, particularly on the right. This is nonspecific and could represent unilateral pulmonary edema, infectious etiology or dependent distribution of foreign vasculature. This is a patient line on the right side). I suspect there are bilateral pleural effusions. Impression: Bilateral pleural effusions. Coarsened interstitium, particularly on the right. Cardiomegaly, sternotomy wires and mediastinal surgical clips. Signed by Buster Mathur MD 02/19/2017 07:58 A
[2017-02-19 08:30] VITALS: BP 138/64
[2017-02-19] MEDS ORDERED: FUROSEMIDE 40 MG/4 ML VIAL (J1940) IV SCH (09:00)
[2017-02-19] MEDS ORDERED: ATENOLOL 12.5MG PER 1/2 TABLET PO SCH (09:00)
[2017-02-19] MEDS ORDERED: CYANOCOBALAMIN 500 MCG TAB PO SCH (09:00)
[2017-02-19] MEDS ORDERED: CALCITRIOL 0.25 MCG CAP (S0169) PO SCH (09:00)
[2017-02-19] MEDS ORDERED: ALLOPURINOL 100 MG TAB PO SCH (09:00)
[2017-02-19] MEDS ORDERED: CALCIUM CARBONATE 500 MG CHEW U/D PO SCH (09:00)
[2017-02-19] MEDS ORDERED: GABAPENTIN 100 MG CAP PO SCH (09:00)
[2017-02-19] MEDS ORDERED: MULTIVITAMINS/MINERALS THERAP 1 TAB PO SCH (09:00)
[2017-02-19] MEDS ORDERED: ASPIRIN ENTERIC 325 MG TAB PO SCH (09:00)
[2017-02-19] MEDS ORDERED: FERROUS SULFATE 325MG TAB PO SCH (09:00)
[2017-02-19 09:01] VITALS: BP 138/64
[2017-02-19] MEDS ORDERED: LORazepam 2 MG/ML VIAL (J2060) IV PRN (12:45)
[2017-02-19] MEDS ORDERED: MORPHINE 2 MG/ML 1ML SYRINGE IV PRN (12:45)
[2017-02-19] MEDS ORDERED: SCOPOLAMINE 1.5 MG TRANSDERMAL TD PRN (12:45)
[2017-02-19] MEDS ORDERED: VANCOMYCIN HCL 750 MG, VIAL MATE ADAPTER 1 EACH in D5W 250 ML IV SCH (14:00)
[2017-02-19] MEDS ORDERED: ACETAMINOPHEN 650 MG SUPP PR PRN (17:00)
[2017-02-19] MEDS: MORPHINE 10 MG/ML 1ML VIAL IV PRN ×2 (17:25→20:34)
[2017-02-19] MEDS ORDERED: SENNA 8.6 MG TAB (SENOKOT) PO SCH (21:00)
[2017-02-19] MEDS ORDERED: SIMVASTATIN 20 MG TAB PO SCH (21:00)
--- NOTE | 2017-02-19 21:13 | IPNPDOC ---
Subjective Date Seen The patient was seen on 02/19/17. Subjective Chief Complaint/HPI The patient is a 86-year-old male admitted with a reason for visit of Healthcare Associated Pneumonia. Events since last encounter Mr. Diego was admitted yesterday evening for health care associated pneumonia with delirium on dementia. He was in the process of being worked up for a L2 compression fx while at [facility] as well. He is very uncomfortable from this. His family is having a hard time seeing him suffer this much from his double pneumonia and the compression fracture. They report that he is in excruciating pain any time he needs to be moved for a test or even just to be repositioned. They feel that his quality of life is very poor and that he wouldn 't want to live this way: grieving his and son who of cancer, unable to remember those he loves that are near him, unable to breathe comfortably, and in excruciating pain with any little movement. General: Reports: ROS Unobtainable Objective Physical Examination General Exam: Positive: Mild Distress (from pain and breathing), Negative: Alert (he does not arouse with light stimulation) ENT Exam: Positive: Atraumatic, Nares Patent Neck Exam: Negative: Lymphadenopathy Chest Exam: Positive: Rales (bibasilar rales noted on auscultation), Rhonchi ( noted in the upper lung zones bilaterally) Heart Exam: Positive: Normal S1, Normal S2, Rate Normal Abdomen Exam: Positive: Soft, Negative: Tenderness Extremity Exam: Negative: Swelling, Tenderness Skin Exam: Positive: Nl turgor and temperature, Negative: Breakdown Psych Exam: Negative: Memory Intact, Oriented x 3 Assessment /Plan Assessment Mr. Diego is an 86-year-old gentleman with dementia, double pneumonia, an L2 compression fracture, and acute on chronic diastolic heart failure. His prognosis is very guarded at this time. Problems (1) Comfort measures only status Status: Chronic Response to Treatment: Progressing Discussed With: Nurse, Health Care Proxy, Family with Pt Consent Problem Specific Plan: Monitor Clinically Problem Text: I spent a significant amount of time discussing his care with the family. When I entered the room I anticipated we would be treating his acute medical conditions. After hearing their concerns and a long discussion with his son and healthcare proxy, Adan, who was on the phone while his uncle and aunt were in the room, it was decided that he would be made comfort measures only. I carefully explained to Adan that I believe the pneumonia and heart failure are treatable conditions. I do also believe if we treat these conditions he will be in pain for some time because of his compression fracture. I do not think he is a good candidate for an operative procedure to stabilize the fracture. His family, including his healthcare proxy, expressed understanding that his current conditions are treatable. They also rightly understand that we do not have to treat them, and that if we don't he will likely from this illness. His son (and healthcare proxy) believes that were his father to be able to make the decision himself he would not choose to live like this. He believes that his father would choose to allow natural to occur rather than go through the suffering that a healing compression fracture will bring. In part he believes this because his father has recently expressed to him that his quality of life is very poor after the of his and one of his sons to cancer. He is no longer able to live independently and does not enjoy his life at [facility]. He has stated several times that he wishes he could just to join his and son. The family believes that this is his opportunity to end his suffering and to be with his loved ones just as he requested. (2) HCAP (healthcare-associated pneumonia) Status: Acute Discussed With: Nurse, Health Care Proxy, Family with Pt Consent Problem Text: The decision today was that we would not be treating his pneumonia. His antibiotics were stopped. (3) Compression fracture of L2 lumbar vertebra Status: Acute Response to Treatment: Uncontrolled Discussed With: Nurse, Health Care Proxy, Family with Pt Consent Problem Text: He is in significant pain from his compression fracture. I've added morphine to his comfort regimen in order to alleviate this discomfort as much as possible. I've also instructed the nurses to move him gently. If they' re not able to reposition him without significant discomfort have asked them to not reposition him. I understand this puts him at increased risk for decubitus ulcerations, however, because he is comfort measures only I believe that this is a tolerable risk. Our goal of therapy is to keep him comfortable and if repositioning makes him uncomfortable we should stop doing it. (4) Dementia Status: Chronic Response to Treatment: Progressing Discussed With: Health Care Proxy, Family with Pt Consent Problem Specific Plan: Monitor Clinically Problem Text: His dementia is the overarching problem in his life. By his family's report he is miserable because he cannot remember recent events and the lump ones around him. Therefore he spends all of his days dwelling on his grief from the past. (5) Acute on chronic diastolic (congestive) heart failure Status: Acute Response to Treatment: Uncontrolled Discussed With: Senior Health Educator, Health Care Proxy, Family with Pt Consent Problem Text: The decision was made not to treat his congestive heart failure today. He is comfort measures only. Plan/VTE VTE Prophylaxis Ordered?: No (patient is comfort measures only) Plan Advance Directives: DNR, HCP, Comfort care (I do not anticipate he will survive this hospitalization.) VS, I&O, 24H, Fishbone Vital Signs/I&O Vital Signs Date Time Temp Pulse Resp B/P Pulse Ox O2 Delivery O2 Flow Rate FiO2 02/19/17 20:34 Room Air 02/19/17 17:35 18 02/19/17 09:01 75 138/64 02/19/17 08:30 99.8 92 I&O- Last 24 Hours up to 6 AM 02/19/17 05:59 Intake Total 0 ml Output Total 0 ml Balance 0 ml Laboratory Data 24H LABS Laboratory Tests 2 02/18/17 21:32: Aspartate Amino Transf (AST/SGOT) 18, Alanine Aminotransferase (ALT/SGPT) 18, Alkaline Phosphatase 123H, Total Bilirubin 0.5#, Direct Bilirubin 0.2, Albumin 2.3#L, Albumin/Globulin Ratio 0.70L, Anion Gap 8, B-Type Natriuretic Peptide 1870H, White Blood Count 14.1H, Red Blood Count 3.43L, Hemoglobin 8.5L, Hematocrit 28.9L, Mean Corpuscular Volume 84.5, Mean Corpuscular Hemoglobin 24.7L, Mean Corpuscular Hemoglobin Concent 29.3L, Red Cell Distribution Width 16.6H, Platelet Count 394, Neutrophils (%) (Auto) 90.3H, Lymphocytes (%) (Auto) 3.0L, Monocytes (%) (Auto) 5.7H, Eosinophils (%) (Auto) 0.2, Basophils (%) (Auto ) 0.1, Neutrophils # (Auto) 12.7H, Lymphocytes # (Auto) 0.5L, Monocytes # (Auto ) 0.8, Eosinophils # (Auto) 0.0, Basophils # (Auto) 0.0, Calcium Level 9.0, Glomerular Filtration Rate 29.3L, Lactic Acid Level 1.7, Large Unclassified Cells # 0.1, Large Unclassified Cells % 0.7, Total Protein 5.6L 02/18/17 22:07: Arterial Blood pH 7.440, Arterial Blood Partial Pressure CO2 35.7, Arterial Blood Partial Pressure O2 152.2H, Arterial Blood Total CO2 24.8, Arterial Blood HCO3 23.7, Arterial Blood Base Excess -0.3, Arterial Blood Oxygen Saturation 99.4H, Blood Gas Bicarbonate Standard 24.3 02/18/17 22:11: Urine Amorphous Sediment , Urine Appearance CLEAR, Urine Color YELLOW, Urine pH 6.0, Urine Specific [place] 1.009, Urine Protein 2+H, Urine Glucose (UA) NEGATIVE, Urine Ketones NEGATIVE, Urine Urobilinogen 0.2, Urine Bilirubin NEGATIVE, Urine Leukocyte Esterase NEGATIVE, Urine Bacteria (Auto) NEGATIVE, Urine Blood NEGATIVE, Urine Calcium Carbonate Cryst(Auto) , Urine Calcium Oxalate Cryst (Auto) , Urine Calcium Phosphate [place] (Auto) , Urine Cellular Casts , Urine Cystine Crystals , Urine Granular Casts (Auto) , Urine Hyaline Casts (Auto) 0, Urine Leucine Crystals , Urine Mucus (Auto) , Urine Nitrite NEGATIVE, Urine Oval Fat Bodies (Auto) , Urine RBC (Auto) 0, Urine Renal Epithelial Cells , Urine Sperm (Auto) , Urine Squamous Epithelial Cells 0, Urine Transitional Epithelial Cells , Urine Trichomonas (Auto) , Urine Triple Phosphate Cryst (Auto) , Urine Tyrosine Crystals , Urine Uric Acid Crystals ( Auto) , Urine WBC (Auto) 1, Urine Waxy Casts (Auto) , Urine Yeast-Like Cells ( Auto) 02/19/17 04:55: Anion Gap 10, White Blood Count 19.1H, Red Blood Count 3.61L, Hemoglobin 9.2L, Hematocrit 30.9L, Mean Corpuscular Volume 85.6, Mean Corpuscular Hemoglobin 25.4L, Mean Corpuscular Hemoglobin Concent 29.6L, Red Cell Distribution Width 16.7H, Platelet Count 413, Neutrophils (%) (Auto) 90.4H, Lymphocytes (%) (Auto) 3.6L, Monocytes (%) (Auto) 5.0, Eosinophils (%) (Auto) 0.1, Basophils (%) (Auto ) 0.1, Neutrophils # (Auto) 17.3H, Lymphocytes # (Auto) 0.7L, Monocytes # (Auto ) 1.0H, Eosinophils # (Auto) 0.0, Basophils # (Auto) 0.0, Calcium Level 9.9, Glomerular Filtration Rate 29.6L, Large Unclassified Cells # 0.2, Large Unclassified Cells % 0.8, Anisocytosis 1+, Blood Urea Nitrogen 32H, Creatinine 2.24H, Sodium Level 133L, Potassium Level 4.1, Chloride Level 97L, Carbon Dioxide Level 26, Differential Pathologist's Review COMPREHENSIVE REVIEW, Differential Slide Review Report, Hypochromasia 2+, Magnesium Level 1.9, Peripheral Blood Smear Path Consult PERIPHERAL SMEAR, Platelet Estimate NORMAL, Poikilocytosis 1+ CBC/BMP Laboratory Tests 02/18/17 21:32 Red Blood Count 3.43 L, Mean Corpuscular Volume 84.5, Mean Corpuscular Hemoglobin 24.7 L, Mean Corpuscular Hemoglobin Concent 29.3 L, Red Cell Distribution Width 16.6 H, Neutrophils (%) (Auto) 90.3 H, Lymphocytes (%) (Auto ) 3.0 L, Monocytes (%) (Auto) 5.7 H, Eosinophils (%) (Auto) 0.2, Basophils (%) ( Auto) 0.1, Neutrophils # (Auto) 12.7 H, Lymphocytes # (Auto) 0.5 L, Monocytes # (Auto) 0.8, Eosinophils # (Auto) 0.0, Basophils # (Auto) 0.0 02/19/17 04:55 Red Blood Count 3.61 L, Mean Corpuscular Volume 85.6, Mean Corpuscular Hemoglobin 25.4 L, Mean Corpuscular Hemoglobin Concent 29.6 L, Red Cell Distribution Width 16.7 H, Neutrophils (%) (Auto) 90.4 H, Lymphocytes (%) (Auto ) 3.6 L, Monocytes (%) (Auto) 5.0, Eosinophils (%) (Auto) 0.1, Basophils (%) ( Auto) 0.1, Neutrophils # (Auto) 17.3 H, Lymphocytes # (Auto) 0.7 L, Monocytes # (Auto) 1.0 H, Eosinophils # (Auto) 0.0, Basophils # (Auto) 0.0, Calcium Level 9.9 Microbiology Microbiology 02/19/17 Blood Culture, Received Pending 02/18/17 Blood Culture, Received Pending 02/19/17 MRSA Screen, Resulted Pending 02/19/17 Respiratory Virus Panel (PCR) ([facility]) - Final, Resulted 02/18/17 Urine Culture, Received Pending Nnamdi Choudhary MD Feb 19, 2017 9:13 pm
--- NOTE | 2017-02-20 07:47 | IPNPDOC ---
Subjective Date Seen The patient was seen on 02/20/17. Subjective Chief Complaint/HPI The patient is a 86-year-old male admitted with a reason for visit of Healthcare Associated Pneumonia. Events since last encounter Pt denies pain. Pulmonary: Denies: Dyspnea Cardiovascular: Denies: Chest Pain Gastrointestinal: Denies: Abdominal Pain Objective Physical Examination General Exam: Positive: Alert, No Acute Distress ENT Exam: Positive: Atraumatic, Nares Patent Neck Exam: Negative: Lymphadenopathy Chest Exam: Positive: Rales (bibasilar rales noted on auscultation), Rhonchi ( noted in the upper lung zones bilaterally) Heart Exam: Positive: Normal S1, Normal S2, Rate Normal Abdomen Exam: Positive: Soft, Negative: Tenderness Extremity Exam: Negative: Swelling, Tenderness Skin Exam: Positive: Nl turgor and temperature, Negative: Breakdown Psych Exam: Negative: Memory Intact, Oriented x 3 Assessment /Plan Problems (1) Comfort measures only status Status: Chronic Response to Treatment: Progressing Discussed With: Nurse, Health Care Proxy, Family with Pt Consent Problem Specific Plan: Monitor Clinically Problem Text: 02/20 - 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 02/19 - I spent a significant amount of time discussing his care with the family. When I entered the room I anticipated we would be treating his acute medical conditions. After hearing their concerns and a long discussion with his son and healthcare proxy, Adan, who was on the phone while his uncle and aunt were in the room, it was decided that he would be made comfort measures only. I carefully explained to Adan that I believe the pneumonia and heart failure are treatable conditions. I do also believe if we treat these conditions he will be in pain for some time because of his compression fracture. I do not think he is a good candidate for an operative procedure to stabilize the fracture. His family, including his healthcare proxy, expressed understanding that his current conditions are treatable. They also rightly understand that we do not have to treat them, and that if we don't he will likely from this illness. His son (and healthcare proxy) believes that were his father to be able to make the decision himself he would not choose to live like this. He believes that his father would choose to allow natural to occur rather than go through the suffering that a healing compression fracture will bring. In part he believes this because his father has recently expressed to him that his quality of life is very poor after the of his and one of his sons to cancer. He is no longer able to live independently and does not enjoy his life at [facility]. He has stated several times that he wishes he could just to join his and son. The family believes that this is his opportunity to end his suffering and to be with his loved ones just as he requested. 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 02/19 - The decision today was that we would not be treating his pneumonia. His antibiotics were stopped. 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 02/19 - He is in significant pain from his compression fracture. I've added morphine to his comfort regimen in order to alleviate this discomfort as much as possible. I've also instructed the nurses to move him gently. If they're not able to reposition him without significant discomfort have asked them to not reposition him. I understand this puts him at increased risk for decubitus ulcerations, however, because he is comfort measures only I believe that this is a tolerable risk. Our goal of therapy is to keep him comfortable and if repositioning makes him uncomfortable we should stop doing it. (4) Dementia Status: Chronic Response to Treatment: Progressing Discussed With: Health Care Proxy, Family with Pt Consent Problem Specific Plan: Monitor Clinically Problem Text: His dementia is the overarching problem in his life. By his family's report he is miserable because he cannot remember recent events and the lump ones around him. Therefore he spends all of his days dwelling on his grief from the past. 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 02/19 - The decision was made not to treat his congestive heart failure today. He is comfort measures only. Plan/VTE VTE Prophylaxis Ordered?: No (patient is comfort measures only) Plan Advance Directives: DNR, HCP, Comfort care (I do not anticipate he will survive this hospitalization.) VS, I&O, 24H, Fishbone Vital Signs/I&O Vital Signs Date Time Temp Pulse Resp B/P Pulse Ox O2 Delivery O2 Flow Rate FiO2 02/19/17 20:34 Room Air 02/19/17 17:35 18 02/19/17 09:01 75 138/64 02/19/17 08:30 99.8 92 I&O- Last 24 Hours up to 6 AM 02/20/17 06:00 Intake Total 0 ml Output Total 25 ml Balance -25 ml Laboratory Data Microbiology Microbiology 02/19/17 Blood Culture - Preliminary, Resulted No growth after 24 hours . All specim... 02/18/17 Blood Culture - Preliminary, Resulted No growth after 24 hours . All specim... 02/19/17 MRSA Screen - Final, Complete 02/19/17 Respiratory Virus Panel (PCR) ([facility]) - Final, Complete 02/18/17 Urine Culture, Received Pending Flaco De Dios Feb 20, 2017 07:46
[2017-02-20] MEDS: MORPHINE 10 MG/ML 1ML VIAL IV PRN ×5 (11:03→21:48)
[2017-02-21] MEDS: MORPHINE 10 MG/ML 1ML VIAL IV PRN ×5 (01:13→13:21)
--- NOTE | 2017-02-21 10:20 | IPNPDOC ---
Subjective Date Seen The patient was seen on 02/21/17. Subjective Chief Complaint/HPI The patient is a 86-year-old male admitted with a reason for visit of Healthcare Associated Pneumonia. Events since last encounter Pt denies pain, SOB. Family at bedside. Constitutional: Denies: Fever Pulmonary: Denies: Dyspnea Cardiovascular: Denies: Chest Pain Gastrointestinal: Denies: Abdominal Pain Objective Physical Examination General Exam: Positive: Alert, No Acute Distress ENT Exam: Positive: Atraumatic, Nares Patent Neck Exam: Negative: Lymphadenopathy Chest Exam: Positive: Rales, Rhonchi Heart Exam: Positive: Normal S1, Normal S2, Rate Normal Abdomen Exam: Positive: Soft Extremity Exam: Negative: Swelling, Tenderness Skin Exam: Positive: Nl turgor and temperature Psych Exam: Negative: Memory Intact, Oriented x 3 Assessment /Plan Problems (1) Comfort measures only status Status: Chronic Response to Treatment: Progressing Discussed With: Nurse, Health Care Proxy, Family with Pt Consent Problem Specific Plan: Monitor Clinically Problem Text: 02/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 02/20 - Pt ORACLE DATABASE ARCHITECT. 02/19 - I spent a significant amount of time discussing his care with the family. When I entered the room I anticipated we would be treating his acute medical conditions. After hearing their concerns and a long discussion with his son and healthcare proxy, Adan, who was on the phone while his uncle and aunt were in the room, it was decided that he would be made comfort measures only. I carefully explained to Adan that I believe the pneumonia and heart failure are treatable conditions. I do also believe if we treat these conditions he will be in pain for some time because of his compression fracture. I do not think he is a good candidate for an operative procedure to stabilize the fracture. His family, including his healthcare proxy, expressed understanding that his current conditions are treatable. They also rightly understand that we do not have to treat them, and that if we don't he will likely from this illness. His son (and healthcare proxy) believes that were his father to be able to make the decision himself he would not choose to live like this. He believes that his father would choose to allow natural to occur rather than go through the suffering that a healing compression fracture will bring. In part he believes this because his father has recently expressed to him that his quality of life is very poor after the of his and one of his sons to cancer. He is no longer able to live independently and does not enjoy his life at [facility]. He has stated several times that he wishes he could just to join his and son. The family believes that this is his opportunity to end his suffering and to be with his loved ones just as he requested. (2) HCAP (healthcare-associated pneumonia) Status: Acute Discussed With: Nurse, Health Care Proxy, Family with Pt Consent Problem Text: 02/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 02/20 - Pt ORACLE DATABASE ARCHITECT. 02/19 - The decision today was that we would not be treating his pneumonia. His antibiotics were stopped. (3) Compression fracture of L2 lumbar vertebra Status: Acute Response to Treatment: Uncontrolled Discussed With: Nurse, Health Care Proxy, Family with Pt Consent Problem Text: 02/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 02/20 - Pt ORACLE DATABASE ARCHITECT. 02/19 - He is in significant pain from his compression fracture. I've added morphine to his comfort regimen in order to alleviate this discomfort as much as possible. I've also instructed the nurses to move him gently. If they're not able to reposition him without significant discomfort have asked them to not reposition him. I understand this puts him at increased risk for decubitus ulcerations, however, because he is comfort measures only I believe that this is a tolerable risk. Our goal of therapy is to keep him comfortable and if repositioning makes him uncomfortable we should stop doing it. (4) Dementia Status: Chronic Response to Treatment: Progressing Discussed With: Health Care Proxy, Family with Pt Consent Problem Specific Plan: Monitor Clinically Problem Text: His dementia is the overarching problem in his life. By his family's report he is miserable because he cannot remember recent events and the lump ones around him. Therefore he spends all of his days dwelling on his grief from the past. 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 02/20 - Pt ORACLE DATABASE ARCHITECT. 02/19 - The decision was made not to treat his congestive heart failure today. He is comfort measures only. Plan/VTE VTE Prophylaxis Ordered?: No (patient is comfort measures only) Plan Advance Directives: DNR, HCP, Comfort care (I do not anticipate he will survive this hospitalization.) VS, I&O, 24H, Fishbone Vital Signs/I&O Vital Signs Date Time Temp Pulse Resp B/P Pulse Ox O2 Delivery O2 Flow Rate FiO2 02/21/17 08:57 16 Room Air 02/19/17 09:01 75 138/64 02/19/17 08:30 99.8 92 I&O- Last 24 Hours up to 6 AM 02/21/17 06:00 Intake Total 0 ml Output Total 0 ml Balance 0 ml Laboratory Data Microbiology Microbiology 02/19/17 Blood Culture - Preliminary, Resulted No Growth after 48 hours. All Specime... 02/18/17 Blood Culture - Preliminary, Resulted No Growth after 48 hours. All Specime... 02/19/17 MRSA Screen - Final, Complete 02/19/17 Respiratory Virus Panel (PCR) ([facility]) - Final, Complete 02/18/17 Urine Culture - Final, Complete Flaco De Dios Feb 21, 2017 10:20
[2017-02-21] MEDS ORDERED: LORazepam 1 MG TAB PO PRN (14:15)
[2017-02-21] MEDS: MORPHINE 10MG/0.5ML ORAL CONCENTRATE SOLUTION U/D SL PRN ×4 (15:46→23:14)
[2017-02-22] MEDS: MORPHINE 10MG/0.5ML ORAL CONCENTRATE SOLUTION U/D SL PRN (05:38)
== END 2017-02-22 08:07 | disposition expired | DRG 291 ==
LOC: EDBD 21:22 → M ED 21:55 → M ED INP 02-19 00:57 → M PCU 02-19 02:37 → M MSPAV 02-20 17:37
PROVIDERS: ADMIT Internal Medicine; ATTEND Family Medicine
DX: I50.33 Acute on chronic diastolic (congestive) heart failure (principal); J18.9 Pneumonia, unspecified organism; J96.91 Respiratory failure, unspecified with hypoxia; I13.0 Hypertensive heart and chronic kidney disease with heart failure and stage 1 through stage 4 chronic kidney disease, or unspecified chronic kidney disease; J90 Pleural effusion, not elsewhere classified; M84.48XA Pathological fracture, other site, initial encounter for fracture; Y95 Nosocomial condition; M10.9 Gout, unspecified; Z51.5 Encounter for palliative care; Z66 Do not resuscitate; F03.90 Unspecified dementia, unspecified severity, without behavioral disturbance, psychotic disturbance, mood disturbance, and anxiety; I25.10 Atherosclerotic heart disease of native coronary artery without angina pectoris; N18.9 Chronic kidney disease, unspecified; K21.9 Gastro-esophageal reflux disease without esophagitis; Z95.1 Presence of aortocoronary bypass graft; Z79.82 Long term (current) use of aspirin; Z79.899 Other long term (current) drug therapy